=== PATIENT | male | born 1965 | race Caucasian/White ===

== ENCOUNTER 2020-02-24 15:44 | Outpatient (REF) | payer OTHER, SELFPAY ==
--- NOTE | 2020-02-24 15:52 | XR_ITS ---
EXAMINATION: XR LUMBOSACRAL SPINE CLINICAL INFORMATION: Pain COMPARISON: Previous x-ray May 2012 TECHNIQUE: Three views of the lumbosacral spine. FINDINGS: Bone alignment is normal. No fracture or dislocation is seen. There is degenerative disc disease at L3-L4. There is multilevel degenerative spondylosis. There is lower lumbar spine facet arthritis. XR/XR lumbar spine 2-3V IMPRESSION: Degenerative changes.
== END 2020-02-24 15:45 | disposition home or self-care (01) ==
LOC: HO.XRAY 15:44
PROVIDERS: PCP Internal Medicine; Visit Provider Internal Medicine
DX: M54.9 Dorsalgia, unspecified (principal)
CPT/HCPCS: 72100

== ENCOUNTER 2020-03-16 10:37 | Outpatient (REF) | payer OTHER, SELFPAY ==
[2020-03-16 11:40] LABS: Basophils Percent Auto 0.3 % (0-2); Eosinophils Absolute Auto 0.1 X10*3/uL (0.0-0.4); Eosinophils Percent Auto 1.7 % (0-4); Hematocrit 46.7 % (42-52); Hemoglobin 15.9 g/dl (14.0-18.0); Imm Gran Abs Auto 0.05 X10*3/uL (0.00-0.03); Imm Gran Pct Auto 0.7 % (0.0-0.4); Lymphocytes Absolute Auto 2.9 X10*3/uL (1.2-4.9); MANUAL DIFF FLAG NO; Mean Corpuscular Hemoglobin 29.3 pg (27.0-33.0); Mean Corpuscular Volume 86.2 fL (80-98); Monocytes Absolute Auto 0.5 X10*3/uL (0.1-1.2); Monocytes Percent Auto 6.8 % (2-11); Neutrophils Absolute Auto 3.3 X10*3/uL (2.0-8.3); Neutrophils Percent Auto 48.5 % (45-73); Platelet Count 208 X10*3/uL (160-400); Red Blood Count 5.42 X10*6/uL (4.60-5.80); Red Cell Distribution Width 13.1 % (11.0-16.0); White Blood Count 6.9 X10*3/uL (4.8-10.8)
[2020-03-16 12:03] LABS: Alanine Aminotransferase 46 U/L (0-40); Albumin Level 4.5 g/dL (3.5-5.0); Alkaline Phosphatase 57 U/L (39-117); Anion Gap 13 (12-20); Aspartate Amino Transferase 29 U/L (5-37); Bilirubin Total 0.5 mg/dL (0.0-1.0); Blood Urea Nitrogen 19 mg/dL (9-16); Calcium 9.4 mg/dL (8.4-10.2); Carbon Dioxide 28 mmol/L (22-29); Chloride 100 mmol/L (96-108); Cholesterol 198 mg/dL; Estimated Glomerular Filt Rate > 60; Glucose Fasting 113 mg/dL (60-99); HDL Cholesterol 33 mg/dL; LDL Cholesterol Calculated 115 mg/dl; Potassium 4.5 mmol/l (3.3-5.1); Sodium 136 mmol/L (135-145); Total Protein 7.2 g/dL (6.5-8.0); Triglycerides 251 mg/dL
[2020-03-16 12:26] LABS: TSH reflex Free T4 0.49 mIU/mL (0.32-4.0)
== END 2020-03-16 10:38 | disposition home or self-care (01) ==
LOC: HO.LAB 10:37
PROVIDERS: Absent Provider Internal Medicine Endocrinology, Diabetes & Metabolism; PCP Internal Medicine; Visit Provider Internal Medicine
DX: E03.9 Hypothyroidism, unspecified (principal); M51.36 Other intervertebral disc degeneration, lumbar region; I10 Essential (primary) hypertension; Z86.718 Personal history of other venous thrombosis and embolism
CPT/HCPCS: 36415; 80053; 80061; 84443; 85025

== ENCOUNTER → 2020-03-25 10:08 | Outpatient (BNVA) | payer OTHER, SELFPAY | PROVIDERS: PCP Internal Medicine; Visit Provider Dietitian, Registered | DX: Z76.89 Persons encountering health services in other specified circumstances (principal) ==

== ENCOUNTER → 2020-04-06 13:49 | Outpatient (BNV) | payer OTHER, SELFPAY | PROVIDERS: PCP Internal Medicine; Visit Provider Internal Medicine | DX: I82.402 Acute embolism and thrombosis of unspecified deep veins of left lower extremity (principal) | CPT/HCPCS: 99212; 99213; 99214; G2211 ==

== ENCOUNTER 2020-05-28 12:15 | Outpatient (REF) | payer OTHER, SELFPAY ==
--- NOTE | ~2020-05-28 | XR_ITS ---
EXAMINATION: XR FOOT, RIGHT CLINICAL INFORMATION: Pain right foot COMPARISON: None TECHNIQUE: AP, lateral, and oblique views of the right foot. FINDINGS: There is no visible acute fracture, dislocation or subluxation. The ankle mortise and subtalar joints are normal. There is a small calcaneal heel and retrocalcaneal enthesophyte. The soft tissues are normal. XR/XR foot RT min 3V IMPRESSION: No acute fracture, dislocation or subluxation. Small calcaneal heel and retrocalcaneal enthesophyte.
== END 2020-05-28 12:16 | disposition home or self-care (01) ==
LOC: HO.HMGCX 12:15
PROVIDERS: PCP Internal Medicine; Visit Provider Hospitalist
DX: M79.671 Pain in right foot (principal)
CPT/HCPCS: 73630

== ENCOUNTER → 2020-06-11 09:43 | Outpatient (BNVA) | payer OTHER, SELFPAY | PROVIDERS: PCP Internal Medicine; Visit Provider Internal Medicine Endocrinology, Diabetes & Metabolism | DX: E03.8 Other specified hypothyroidism (principal); E06.3 Autoimmune thyroiditis; Z87.891 Personal history of nicotine dependence | CPT/HCPCS: 99212 ==

== ENCOUNTER 2020-08-12 07:46 | Outpatient (REF) | payer OTHER, SELFPAY ==
[2020-08-12 09:13] LABS: Alanine Aminotransferase 48 U/L (0-40); Albumin Level 4.5 g/dL (3.5-5.0); Alkaline Phosphatase 64 U/L (39-117); Anion Gap 17 (12-20); Aspartate Amino Transferase 20 U/L (5-37); Bilirubin Total 0.5 mg/dL (0.0-1.0); Blood Urea Nitrogen 28 mg/dL (9-16); Calcium 9.5 mg/dL (8.4-10.2); Carbon Dioxide 24 mmol/L (22-29); Chloride 98 mmol/L (96-108); Cholesterol 246 mg/dL; Estimated Glomerular Filt Rate > 60; Glucose Fasting 333 mg/dL (60-99); HDL Cholesterol 31 mg/dL; Potassium 4.2 mmol/L (3.3-5.1); Sodium 135 mmol/L (135-145); Total Protein 7.3 g/dL (6.5-8.0); Triglycerides 997 mg/dL
[2020-08-12 09:21] LABS: Thyroid Stimulating Hormone 0.23 uIU/mL (0.32-4.0)
[2020-08-12 09:31] LABS: Free T4 (Free Thyroxine) 0.99 ng/dL (0.71-1.85)
== END 2020-08-12 07:47 | disposition home or self-care (01) ==
LOC: HO.LAB 07:46
PROVIDERS: Absent Provider Internal Medicine Endocrinology, Diabetes & Metabolism; PCP Internal Medicine; Visit Provider Internal Medicine
DX: I10 Essential (primary) hypertension (principal); E03.8 Other specified hypothyroidism; E06.3 Autoimmune thyroiditis; E78.5 Hyperlipidemia, unspecified
CPT/HCPCS: 36415; 80053; 80061; 84439; 84443

== ENCOUNTER 2020-10-24 13:18 | Emergency (ER) | payer OTHER, SELFPAY ==
[2020-10-24 13:22] VITALS: BP 133/94; PULSE 83; RESP 18; TEMP 36.8; O2SAT 98; BMI 36.3
--- NOTE | 2020-10-24 14:11 | ED_ITS ---
HPI - Back Pain/Injury General Chief Complaint: Back Pain/Injury Stated Complaint: General Medical Time Seen by Provider: 10/24/20 14:08 History of Present Illness HPI Narrative: Patient complains of right-sided back pain radiating to the right foot which is a chronic problem for him which periodically hurts more than normal, he has had a recent MRI which did show spinal stenosis and was told by his neurosurgeon that surgery is not recommended now but they are going to try an injection later this summer He has no new numbness or weakness, no changes to bowel or bladder no incontinence no dysuria no fever no new injury Related Data Home Medications Medication Instructions Recorded Confirmed omeprazole 20 mg capsule,delayed 20 mg PO DAILY 02/24/20 09/03/20 release venlafaxine 75 mg capsule,extended 75 mg PO DAILY 06/11/20 09/03/20 release 24 hr Previous Rx's Medication Instructions Recorded walker #1 ea 02/27/20 levothyroxine 150 mcg tablet 150 mcg PO DAILY 90 Days #90 tab 06/11/20 loratadine 10 mg capsule 10 mg PO DAILY PRN 90 Days #90 cap 06/16/20 zolpidem 5 mg tablet 5 mg PO BEDTIME PRN 30 Days #30 tab 06/16/20 lisinopril 10 mg tablet 10 mg PO DAILY 90 Days #90 tab 06/23/20 cyclobenzaprine 5 mg tablet 5 mg PO TID PRN #10 tab 08/11/20 lactulose 10 gram/15 mL (15 mL) 10 g PO BEDTIME PRN 30 Days #600 ml 08/11/20 oral solution prednisone 20 mg tablet 20 mg PO .COMPLEX #18 tab 08/11/20 tramadol 50 mg tablet 50 mg PO Q8H PRN 30 Days #90 tab 08/11/20 dexamethasone 4 mg tablet 4 mg PO .COMPLEX #18 tab 08/26/20 diclofenac sodium 75 mg 75 mg PO BID PRN #60 tab 09/03/20 tablet,delayed release oxycodone-acetaminophen 10 mg-325 1 tab PO Q6H PRN #14 tab 09/03/20 mg tablet (Percocet) hydrochlorothiazide 25 mg tablet 25 mg PO DAILY 90 Days #90 tab 09/11/20 oxycodone 5 mg tablet 5 mg PO Q6H PRN #14 tab 10/24/20 prednisone 20 mg tablet 60 mg PO DAILY 3 Days #9 tab 10/24/20 Allergies Allergy/AdvReac Type Severity Reaction Status Date / Time mint [MINT] Allergy Intermediate BRUISING Verified 10/24/20 13:22 OF FEET Review of Systems Review of Systems: Positive for right-sided back pain radiating to the foot negatives are no fever no chills no dizziness no weakness no fainting no falling no headache no neck pain no chest pain no shortness of breath no abdominal pain no dysuria no incontinence no frequency no changes to bowel or bladder no motor weakness, no loss of sensation Yes all other systems are reviewed and are negative [facility] Past Medical History Source: nursing notes reviewed Medical History (Updated 10/24/20 @ 14:18 by [facility]) Essential hypertension GERD (gastroesophageal reflux disease) History of DVT (deep vein thrombosis) Hypothyroidism Lumbar degenerative disc disease Lumbar stenosis Sciatica Surgical History History of adenoidectomy History of breast biopsy History of lithotripsy Family History Family History Mother Hypertension Father Diabetes Hypertension Stroke Brother No problems noted. Brother No problems noted. Sister No problems noted. Son In good health Son In good health Son In good health Son In good health Social History Social History Alcohol intake: never Advance Directives: No Advance Directives Information Provided: No Physical Exam Vital Signs: Vital Signs: Last Vital Signs Temp 98.2 F 10/24/20 13:22 Pulse 83 10/24/20 13:22 Resp 18 10/24/20 13:22 BP 133/94 H 10/24/20 13:22 Pulse Ox 98 10/24/20 13:22 Body Mass Index 36.3 General appearance no acute distress Head is normocephalic atraumatic Neck is supple nontender Chest clear to auscultation bilateral Abdomen soft nontender The back had right lower lumbar and right upper gluteal tenderness, no redness no warmth to the skin no wounds no rash, no midline tenderness no CVA tenderness, pain is reproduced with movement Extremities full range of motion x4 Neuro no gross motor or sensory deficits Course Course Course Narrative: Patient with long history of sciatica having a flare-up of pain with no neurologic deficit or changes to bowel or bladder a fever is treated with analgesics and a course of prednisone and discharged Discharge Plan Discharge Clinical Impression: Lumbar radiculopathy Patient Disposition: Home, Self-Care Additional Instructions: We started the medication prednisone to reduce inflammation around the nerve We did a short course of oxycodone for your back pain flare up Follow with primary doctor and your back surgeon for further evaluation and possible injection Return any concerns Prescriptions: New prednisone 20 mg tablet 60 mg PO DAILY 3 Days Qty: 9 RF: 0 oxycodone 5 mg tablet 5 mg PO Q6H PRN (Reason: pain) Qty: 14 RF: 0 No Action (DME) walker Misc See Rx Instructions .ROUTE .MEDSUPPLY Qty: 1 RF: 0 lisinopril 10 mg tablet 10 mg PO DAILY 90 Days Qty: 90 RF: 3 hydrochlorothiazide 25 mg tablet 25 mg PO DAILY 90 Days Qty: 90 RF: 1 omeprazole 20 mg capsule,delayed release(DR/EC) 20 mg PO DAILY RF: 0 cyclobenzaprine 5 mg tablet 5 mg PO TID PRN (Reason: muscle spasm) Qty: 10 RF: 0 prednisone 20 mg tablet 20 mg PO .COMPLEX Qty: 18 RF: 0 tramadol 50 mg tablet 50 mg PO Q8H PRN (Reason: pain) 30 Days Qty: 90 RF: 0 lactulose 10 gram/15 mL (15 mL) solution 10 g PO BEDTIME PRN (Reason: constipation) 30 Days Qty: 600 RF: 6 dexamethasone 4 mg tablet 4 mg PO .COMPLEX Qty: 18 RF: 0 oxycodone-acetaminophen [Percocet] 10-325 mg tablet 1 tab PO Q6H PRN (Reason: pain) Qty: 14 RF: 0 diclofenac sodium 75 mg tablet,delayed release (DR/EC) 75 mg PO BID PRN (Reason: pain) Qty: 60 RF: 0 loratadine 10 mg capsule 10 mg PO DAILY PRN (Reason: allergy symptoms) 90 Days Qty: 90 RF: 3 zolpidem 5 mg tablet 5 mg PO BEDTIME PRN (Reason: Insomnia) 30 Days Qty: 30 RF: 0 venlafaxine 75 mg capsule,extended release 24hr 75 mg PO DAILY RF: 0 levothyroxine 150 mcg tablet 150 mcg PO DAILY 90 Days Qty: 90 RF: 2 Interventions: ED Discharge Assessment Last Done: 10/24/20 14:26 Discharge Date/Time: 10/24/20 14:27
[2020-10-24] MEDS: predniSONE 20 MG TABLET 60 MG PO (14:20)
== END 2020-10-24 14:27 | disposition home or self-care (01) ==
PROVIDERS: Emergency Provider Emergency Medicine; PCP Internal Medicine
DX: M54.16 Radiculopathy, lumbar region (principal); M54.41 Lumbago with sciatica, right side; I10 Essential (primary) hypertension; Z86.718 Personal history of other venous thrombosis and embolism; E66.9 Obesity, unspecified; Z68.30 Body mass index [BMI] 30.0-30.9, adult
CPT/HCPCS: 99283

== ENCOUNTER 2020-12-23 08:20 | Outpatient (REF) | payer OTHER, SELFPAY ==
[2020-12-23 09:12] LABS: Alanine Aminotransferase 56 U/L (0-40); Albumin Level 4.7 g/dL (3.5-5.0); Alkaline Phosphatase 47 U/L (39-117); Anion Gap 11 (12-20); Aspartate Amino Transferase 27 U/L (5-37); Bilirubin Total 0.2 mg/dL (0.0-1.0); Blood Urea Nitrogen 16 mg/dL (9-16); Calcium 9.6 mg/dL (8.4-10.2); Carbon Dioxide 28 mmol/L (22-29); Chloride 102 mmol/L (96-108); Cholesterol 235 mg/dL; Estimated Glomerular Filt Rate > 60; Glucose Fasting 183 mg/dL (60-99); HDL Cholesterol 38 mg/dL; Potassium 4.2 mmol/L (3.3-5.1); Sodium 137 mmol/L (135-145); Total Protein 7.2 g/dL (6.5-8.0); Triglycerides 493 mg/dL
[2020-12-23 09:36] LABS: Thyroid Stimulating Hormone 1.37 uIU/mL (0.32-4.0)
[2020-12-23 10:19] LABS: Creatinine Urine 216.74 mg/dL; Microalbum/Creatinine Ratio Ur 13.3 ug/mg cr
== END 2020-12-23 08:21 | disposition home or self-care (01) ==
LOC: HO.LAB 08:20
PROVIDERS: PCP Internal Medicine; Visit Provider Internal Medicine
DX: E11.9 Type 2 diabetes mellitus without complications (principal); E03.8 Other specified hypothyroidism; E06.3 Autoimmune thyroiditis; E78.5 Hyperlipidemia, unspecified
CPT/HCPCS: 36415; 80053; 80061; 82043; 84439; 84443

== ENCOUNTER → 2021-01-11 14:17 | Outpatient (BNVA) | payer OTHER, SELFPAY | PROVIDERS: PCP Internal Medicine; Visit Provider Nurse Practitioner Gerontology | DX: E03.8 Other specified hypothyroidism (principal); E06.3 Autoimmune thyroiditis; E66.09 Other obesity due to excess calories; Z68.33 Body mass index [BMI] 33.0-33.9, adult | CPT/HCPCS: 82947; 99212 ==

== ENCOUNTER 2021-02-01 11:50 | Outpatient (REF) | payer OTHER, SELFPAY ==
--- NOTE | ~2021-02-01 | US_ITS ---
EXAMINATION: LEFT LOWER EXTREMITY DEEP VENOUS ULTRASOUND CLINICAL INFORMATION: Left lower extremity pain and swelling. History of prior DVT. COMPARISON: Left lower extremity DVT study 02/07/2019 TECHNIQUE: Duplex Doppler imaging with compression maneuvers were performed of the left lower extremity deep venous system. FINDINGS: The visualized common femoral vein, superficial femoral vein and proximal portion of the popliteal vein demonstrate normal compressibility and color flow without evidence of venous thrombosis. Within the distal aspect of the popliteal vein there is an echogenic focus most suggestive of old thrombus. Color Doppler flow is identified in this region. Visualized calf veins demonstrate normal color flow consistent with patency. There is no evidence of a Raphael's cyst. US/US venous duplex LE LT IMPRESSION: Suspected chronic appearing nonocclusive DVT within the distal portion of the left popliteal vein. An element of subtle superimposed nonocclusive acute thrombus not excluded. Preliminary results discussed with Dr. Rubio by the technologist at 12:15pm.
== END 2021-02-01 11:51 | disposition home or self-care (01) ==
LOC: HO.HMGCX 11:50
PROVIDERS: PCP Internal Medicine; Visit Provider Physician Assistant Medical
DX: M79.605 Pain in left leg (principal); Z86.718 Personal history of other venous thrombosis and embolism
CPT/HCPCS: 93971

== ENCOUNTER → 2021-02-03 11:00 | Outpatient (BNVA) | payer OTHER, SELFPAY | PROVIDERS: PCP Internal Medicine; Visit Provider Registered Nurse Diabetes Educator | DX: E11.9 Type 2 diabetes mellitus without complications (principal); I10 Essential (primary) hypertension; E78.5 Hyperlipidemia, unspecified; E78.2 Mixed hyperlipidemia; E66.9 Obesity, unspecified; F14.11 Cocaine abuse, in remission; F12.21 Cannabis dependence, in remission; Z87.891 Personal history of nicotine dependence; Z91.02 Food additives allergy status | CPT/HCPCS: 99211 ==

== ENCOUNTER → 2021-05-05 13:41 | Outpatient (BNVA) | payer OTHER, SELFPAY | PROVIDERS: PCP Internal Medicine; Visit Provider Nurse Practitioner Gerontology | DX: E11.9 Type 2 diabetes mellitus without complications (principal); E03.8 Other specified hypothyroidism; E06.3 Autoimmune thyroiditis; E66.09 Other obesity due to excess calories; E78.5 Hyperlipidemia, unspecified; I10 Essential (primary) hypertension; Z68.41 Body mass index [BMI] 40.0-44.9, adult; Z79.84 Long term (current) use of oral hypoglycemic drugs | CPT/HCPCS: 82947; 99212 ==

== ENCOUNTER → 2021-05-07 10:37 | Outpatient (BNVA) | payer OTHER, SELFPAY | PROVIDERS: PCP Internal Medicine; Visit Provider Registered Nurse Diabetes Educator | DX: E11.9 Type 2 diabetes mellitus without complications (principal) | CPT/HCPCS: 99211 ==

== ENCOUNTER 2021-05-31 08:30 | Outpatient (REF) | payer OTHER, SELFPAY ==
--- NOTE | ~2021-05-31 | US_ITS ---
EXAMINATION: US ABDOMEN COMPLETE CLINICAL INFORMATION: Right upper quadrant pain. COMPARISON: CT abdomen and pelvis without contrast 11/24/2015. TECHNIQUE: Real-time imaging of the abdominal viscera. FINDINGS: PANCREAS: The head and body appear normal. The tail is obscured by bowel gas. ABDOMINAL AORTA: The proximal, mid, and distal segments are normal in caliber. INFERIOR VENA CAVA: Visualized portions are normal. LIVER: The liver is enlarged measuring 18.3 cm. The liver contour is normal. There is diffuse increased liver parenchymal echogenicity, consistent with hepatic steatosis. There is fatty sparing along the gallbladder fossa. No focal hepatic lesion. There is no intrahepatic biliary duct dilatation seen. GALLBLADDER: Normal. The gallbladder is physiologically distended without evidence of stones, sludge, polyps, wall thickening or pericholecystic fluid. COMMON BILE DUCT: Normal in caliber measuring 0.4 cm in diameter. RIGHT KIDNEY: Normal. No hydronephrosis. No renal calculi or focal parenchymal lesions. The kidney measures 12.6 cm in maximum dimension. LEFT KIDNEY: Normal. No hydronephrosis. No renal calculi or focal parenchymal lesions. The kidney measures 12.0 cm in maximum dimension. SPLEEN: Normal. The spleen measures 11.1 cm in maximum dimension. FREE FLUID: None. US/US abdomen complete IMPRESSION: Enlarged fatty liver.
== END 2021-05-31 08:31 | disposition home or self-care (01) ==
LOC: HO.US 08:30
PROVIDERS: PCP Internal Medicine; Visit Provider Internal Medicine
DX: R10.11 Right upper quadrant pain (principal)
CPT/HCPCS: 76700

== ENCOUNTER → 2021-06-18 11:01 | Outpatient (BNVA) | payer OTHER, SELFPAY | PROVIDERS: PCP Internal Medicine; Visit Provider Registered Nurse Diabetes Educator | DX: E11.9 Type 2 diabetes mellitus without complications (principal) | CPT/HCPCS: 99211 ==

== ENCOUNTER → 2021-10-22 11:12 | Outpatient (BNVA) | payer OTHER, SELFPAY | PROVIDERS: PCP Internal Medicine; Visit Provider Registered Nurse Diabetes Educator | DX: E11.9 Type 2 diabetes mellitus without complications (principal) | CPT/HCPCS: 99211 ==

== ENCOUNTER 2021-12-24 08:09 | Outpatient (REF) | payer OTHER, SELFPAY ==
[2021-12-24 09:36] LABS: Alanine Aminotransferase 47 U/L (0-40); Albumin Level 4.4 g/dL (3.5-5.0); Alkaline Phosphatase 46 U/L (39-117); Anion Gap 14 (12-20); Aspartate Amino Transferase 30 U/L (5-37); Bilirubin Total 0.2 mg/dL (0.0-1.0); Blood Urea Nitrogen 14 mg/dL (9-16); Calcium 9.5 mg/dL (8.4-10.2); Carbon Dioxide 27 mmol/L (22-29); Chloride 101 mmol/L (96-108); Cholesterol 202 mg/dL; Estimated Glomerular Filt Rate > 60; Glucose Fasting 130 mg/dL (60-99); HDL Cholesterol 34 mg/dL; LDL Cholesterol Calculated 99 mg/dl; Potassium 4.2 mmol/L (3.3-5.1); Sodium 138 mmol/L (135-145); Total Protein 6.9 g/dL (6.5-8.0); Triglycerides 346 mg/dL
[2021-12-24 09:53] LABS: Creatinine Urine 104.21 mg/dL; Microalbum/Creatinine Ratio Ur 4.7 ug/mg cr
[2021-12-24 09:56] LABS: Thyroid Stimulating Hormone 0.77 uIU/mL (0.32-4.0)
== END 2021-12-24 08:10 | disposition home or self-care (01) ==
LOC: HO.LAB 08:09
PROVIDERS: Visit Provider Internal Medicine
DX: E03.8 Other specified hypothyroidism (principal); E78.5 Hyperlipidemia, unspecified; E11.9 Type 2 diabetes mellitus without complications; E06.3 Autoimmune thyroiditis
CPT/HCPCS: 36415; 80053; 80061; 82043; 84443

== ENCOUNTER 2022-06-28 07:37 | Outpatient (REF) | payer OTHER, SELFPAY ==
[2022-06-28 09:16] LABS: Creatinine Urine 279.49 mg/dL; Microalbum/Creatinine Ratio Ur 7.5 ug/mg cr
[2022-06-28 09:26] LABS: Alanine Aminotransferase 64 U/L (0-40); Albumin Level 4.2 g/dL (3.5-5.0); Alkaline Phosphatase 56 U/L (39-117); Anion Gap 13 (12-20); Aspartate Amino Transferase 36 U/L (5-37); Bilirubin Total 0.4 mg/dL (0.0-1.0); Blood Urea Nitrogen 19 mg/dL (9-16); Calcium 9.5 mg/dL (8.4-10.2); Carbon Dioxide 28 mmol/L (22-29); Chloride 102 mmol/L (96-108); Cholesterol 194 mg/dL; Estimated Glomerular Filt Rate > 60; Glucose Fasting 180 mg/dL (60-99); HDL Cholesterol 28 mg/dL; Potassium 4.2 mmol/L (3.3-5.1); Sodium 139 mmol/L (135-145); Total Protein 6.7 g/dL (6.5-8.0); Triglycerides 610 mg/dL
[2022-06-28 09:47] LABS: Folate 10.9 ng/mL (> or = 4.0); Thyroid Stimulating Hormone 0.81 uIU/mL (0.32-4.0); Vitamin B12 485 pg/mL (200-900); Vitamin D 25-OH Total 17.6 ng/mL (>30)
== END 2022-06-28 07:38 | disposition home or self-care (01) ==
LOC: HO.LAB 07:37
PROVIDERS: PCP Internal Medicine; Visit Provider Internal Medicine
DX: E78.5 Hyperlipidemia, unspecified (principal); E55.9 Vitamin D deficiency, unspecified; E11.9 Type 2 diabetes mellitus without complications; E53.8 Deficiency of other specified B group vitamins; E03.8 Other specified hypothyroidism; E06.3 Autoimmune thyroiditis
CPT/HCPCS: 36415; 80053; 80061; 82043; 82306; 82607; 82746; 84443

== ENCOUNTER → 2022-07-22 08:57 | Outpatient (BNVA) | payer OTHER, SELFPAY | PROVIDERS: PCP Internal Medicine; Visit Provider Psychiatry & Neurology Neurology | DX: R20.0 Anesthesia of skin (principal) | CPT/HCPCS: 99202 ==

== ENCOUNTER 2022-10-12 09:42 | Outpatient (REF) | payer OTHER, SELFPAY ==
--- NOTE | 2022-10-12 09:45 | EMG_ITS ---
Please see scanned EMG / Nerve Conduction Report. MTDD
== END 2022-10-12 09:43 | disposition home or self-care (01) ==
LOC: HO.NEURO 09:42
PROVIDERS: PCP Internal Medicine; Visit Provider Psychiatry & Neurology Neurology
DX: R20.0 Anesthesia of skin (principal)
CPT/HCPCS: 95885; 95910

== ENCOUNTER 2023-01-04 14:31 | Outpatient (AMB) | payer OTHER, SELFPAY ==
--- NOTE | 2023-01-04 14:32 | MHC.PC.OV ---
Vital Signs 01/04/23 14:36 Height 5 ft 3 in Weight 214 lb BMI 37.9 BP 130/80 Blood Pressure Location Lt brachial Position Sitting Pulse 74 Pulse Source Pulse Oximeter Pulse Oximetry (%) 97 Oxygen Delivery Method Room Air Intake Visit Reasons: Annual Exam Intake Note: Patient here for a physical exam Wound Specialist Required: No Accompanied by: Self / Same As Patient Allergies mint [MINT] Allergy (Intermediate, Verified 01/04/23 15:10) BRUISING OF FEET Medication List - Last Reconciled 01/04/23 by Gem Linares MD apixaban (Eliquis) 5 mg PO BID 90 days atorvastatin 40 mg PO BEDTIME 90 days blood sugar diagnostic (FreeStyle Test strips) Use 1 test strip once a day blood-glucose meter (StyleCasterStyle [place] Lite kit) As directed cholecalciferol (vitamin D3) 50 mcg PO DAILY 90 days diclofenac sodium 1% (Arthritis Pain (diclofenac)) 2 grams topical QID 30 days fenofibrate 54 mg PO DAILY 90 days hydrochlorothiazide 25 mg PO DAILY 90 days lancets (FreeStyle Lancets) Use 1 lancet daily to test blood glucose. levothyroxine 150 mcg PO DAILY 90 days lisinopril 10 mg PO DAILY 90 days loratadine 10 mg PO DAILY PRN 90 days meloxicam 15 mg PO DAILY 90 days metformin 1,000 mg (2 x 500 mg) PO BID 90 days omeprazole 20 mg PO DAILY 90 days semaglutide (Ozempic) 0.25 mg (0.368 mL) subcut QWEEK 90 days venlafaxine ER 37.5 mg PO DAILY 90 days walker As directed zolpidem 5 mg PO BEDTIME PRN 30 days Tobacco use date assessed: 06/22/22 Dental Screening Dental Screen Date: 01/04/23 Did you have a dental visit in the last 12 months?: Yes Did you have a dental problem in the last 6 months where you did not have access to dental care?: No Was dental information given to patient?: Patient has dentist HPI HPI Comments History of Present Illness Details This is a 57-year-old male with diabetes mellitus type 2 that comes for his physical exam. A1c elevated and I will increase also Ozempic. Last diabetic eye exam was 2 years ago and will be referred. Last colonoscopy was 2015 showing hyperplastic polyp next colonoscopy should be 2025. Complains of numbness and burning like pain in lower limbs and had nerve conduction study showing neuropathy and I will refer him to Neurology. No chest pain or shortness of breath. [facility] Medical History (Updated 01/04/23 @ 15:28 by Gem Linares MD) Numbness of right foot Right upper quadrant abdominal pain Dyslipidemia DM2 (diabetes mellitus, type 2) Obesity due to excess calories Mixed hyperlipidemia Diabetes mellitus Sciatica Lumbar stenosis Essential hypertension Hypothyroidism History of DVT (deep vein thrombosis) Lumbar degenerative disc disease GERD (gastroesophageal reflux disease) Surgical History Status post cervical spinal fusion History of lithotripsy History of adenoidectomy History of breast biopsy Family History Mother Hypertension Father Diabetes Hypertension Stroke Brother No problems noted. Brother No problems noted. Sister No problems noted. Son In good health Son In good health Son In good health Son In good health Social History Household Members: Spouse Housing: Apartment Alcohol intake: former Patient Tobacco Use Status: Former Tobacco user Tobacco use type: Cigarette Years Smoked: quit 20 years ago e-Cigarette/Vaping Use: Never Used Second Hand Smoke Exposure: Yes Substance Use Type: Crack/Cocaine, Former Substance User and Marijuana service: No Current occupational status: disabled Cognitive needs: Yes Hearing needs: No Vision needs: Yes Questionnaire Thrive Questionnaire Date Thrive assessed: 06/22/22 JENARO-7 AMB Questionnaire JENARO-7 Date JNEARO - 7 assessed: 06/22/22 Source: Developed by Drs. Robby Rodriguez, Daysi Gonzalez, Chu Casper and colleagues, with an educational christian from [employer]. Review of Systems Const All systems reviewed & are unremarkable except as noted in HPI and below Eyes Reports no additional complaints, Denies change in vision and Denies other visual disturbances Card Denies chest pain at rest, Denies chest pain with activity, Denies edema, Denies irregular heart rhythm, Denies claudication, Denies dyspnea, Denies dyspnea on exertion, Denies orthopnea, Denies paroxysmal nocturnal dyspnea and Denies slow heart rate Resp Denies cough, Denies dyspnea and Denies dyspnea on exertion GI Denies abdominal pain, Denies change in bowel habits, Denies excessive flatus, Denies nausea and Denies vomiting Denies urinary hesitancy, Denies urinary incontinence and Denies urinary urgency Musc Denies abnormal gait, Denies atrophy, Denies deformity and Denies limited range of motion Skin/Breast Denies bleeding lesions, Denies changing lesions and Denies rash Neuro Denies abnormal gait and Denies lack of coordination Physical exam (Primary Care) Vital Signs: Last Vital Signs Pulse 74 01/04/23 14:36 BP 130/80 01/04/23 14:36 Pulse Ox 97 01/04/23 14:36 Oxygen Delivery Method Room Air 01/04/23 14:36 BMI result Body Mass Index 37.9 Tobacco/Smoking Status: Tobacco use Status Tobacco use date assessed 06/22/22 01/04/23 14:34 Patient Tobacco Use Status Former Tobacco user 01/04/23 14:34 Tobacco use type Cigarette 01/04/23 14:34 e-Cigarette/Vaping Use Never Used 01/04/23 14:34 Thrive Assessment: Date of Thrive Assessment Date Thrive assessed 06/22/22 01/04/23 14:34 Const Orientation/consciousness: patient oriented x3 HENMT Head: Yes normal to inspection, Yes normocephalic and Yes atraumatic Ears: external ears normal Eyes General: appearance normal, both eyes and all related structures Eyelids: Yes eyelids normal Conjunctivae: conjunctivae normal Neck Neck: Yes normal visual inspection and Yes supple Resp Effort & Inspection: normal respiratory effort Auscultation: clear to auscultation bilaterally Cardio Jugular venous distension: no JVD Rate: regular rate Rhythm: regular rhythm Heart sounds: S1 normal heart sound present and S2 normal heart sound present GI Inspection: Yes normal to inspection Palpation (GI): Soft to palpation and nontender Auscultation: normal bowel sounds Skin General skin exam: no rashes or lesions noted Neuro General: patient oriented x3 and no focal motor deficits Extrem General: Yes full ROM Psych Appearance: grossly normal Office Procedures Flu Questionnaire Does the patient have a severe egg allergy?: No Results AMB Hemoglobin A1c AMB Hemoglobin A1c 9.0 % Last Edit by HARRY Munoz on 01/04/23 14:43 Immunizations flu vacc [id number] 6mos up(PF) 60 mcg(15 mcgx4)/0.5 mL IM syringe Performing Provider: Gem Linares MD [facility] Documented (not given) by: HARRY Munoz on 01/04/23 14:40 Reason Not Given: Patient Refused Results Reviewed Results Reviewed: Laboratory Last Values Hgb A1c (Clinic) 9.0 % (4.0-6.0) H 01/04/23 14:32 Assessment and Plan Assessment & Plan (1) Physical exam: Code(s): Z00.00 - Encounter for general adult medical examination without abnormal findings Plan: Repeat in a year. (2) DM2 (diabetes mellitus, type 2): Code(s): E11.9 - Type 2 diabetes mellitus without complications Qualifiers: Diabetes mellitus buttermaker continuous churn insulin use: without buttermaker continuous churn use Diabetes mellitus complication status: without complication Qualified Code(s): E11.9 - Type 2 diabetes mellitus without complications Plan: Continue metformin. Increase Ozempic. A1c goal is equal or less than 7 %. Orders: Orders AMB Hemoglobin A1c Today E11.9 - Type 2 diabetes mellitus without complications Influenza [id number] Immunization Today Z23 - Encounter for immunization Referrals Ophthalmology Referral E11.9 - Type 2 diabetes mellitus without complications Neurology Referral G62.9 - Polyneuropathy, unspecified Medications: New fenofibrate 160 mg PO DAILY 90 tabs 1RF 90 days semaglutide 1 mg (0.75 mL) subcut QWEEK 3.75 mL 6RF 30 days E11.9 - Type 2 diabetes mellitus without complications Changed From metformin 1,000 mg (2 x 500 mg) PO BID 90 days 360 tabs 0RF E11.9 - Type 2 diabetes mellitus without complications To metformin 500 mg PO BID 180 tabs 3RF 90 days E11.9 - Type 2 diabetes mellitus without complications Discontinued fenofibrate Discontinued Reason: Patient Completed Course 54 mg PO DAILY 90 days 90 tabs 1RF semaglutide (Ozempic) for 4 weeks Discontinued Reason: Patient Completed Course 0.25 mg (0.368 mL) subcut QWEEK 90 days 5.2 mL 1RF E11.9 - Type 2 diabetes mellitus without complications Coding Level of Care Code Est Pt Prev Care 40-64y(55914) Diagnoses Physical exam Z00.00 Type 2 diabetes mellitus without complication, without long-term current use of insulin E11.9 Diabetes mellitus buttermaker continuous churn insulin use: without buttermaker continuous churn use Diabetes mellitus complication status: without complication Time Spent (min) 33
[2023-01-04 14:36] VITALS: BP 130/80; PULSE 74; O2SAT 97; BMI 37.9
== END 2023-01-04 15:25 | disposition home or self-care (01) ==
PROVIDERS: Visit Provider Internal Medicine
DX: Z00.00 Encounter for general adult medical examination without abnormal findings (principal); E11.9 Type 2 diabetes mellitus without complications; I10 Essential (primary) hypertension; K21.9 Gastro-esophageal reflux disease without esophagitis
CPT/HCPCS: 83036; 99396

== ENCOUNTER 2023-02-21 10:14 | Outpatient (AMB) | payer OTHER, SELFPAY ==
[2023-02-21 10:23] VITALS: BP 140/78; PULSE 81; O2SAT 96; BMI 37.8
--- NOTE | 2023-02-21 10:23 | A.OFFVIS_ITS ---
Intake Vital Signs 02/21/23 10:23 Height 5 ft 3 in Weight 213 lb 8 oz BMI 37.8 BP 140/78 H Blood Pressure Location Rt brachial Position Sitting Pulse 81 Pulse Source Pulse Oximeter Pulse Oximetry (%) 96 Oxygen Delivery Method Room Air Intake Visit Reasons: f/u appt for Polyneuropath/Confirmed Intake Note: Pt presents to the office today for a follow up appointment for polyneuropathy. Allergies mint [MINT] Allergy (Intermediate, Verified 02/21/23 10:24) BRUISING OF FEET HPI HPI Comments History of Present Illness Details 57 y/o male patient comes for follow up of numbness in his right foot and EMG report. 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 EMG of right L4-S1 innervated muscles consistent with mild distal chronic neuropathic changes of neuropathy. He says the numbness of right distal toes started about 2 years ago. The numbness is in his 4th, 5th toe on his right. He has chronic back pain and sciatica and intermittently he has shooting pain and numbness in his whole right lower extremity. He was getting injections for his back pain. Pt is seeing [facility] for treatment of his back, was seen by neurosurgery. Pt also muscle cramps in his right leg in sleep, muscle jerks at night that wakes him up. He has RYDER and is on CPAP. His last A1C was 9 in Dec, 2022. [facility] Medical History Numbness of right foot Right upper quadrant abdominal pain Dyslipidemia DM2 (diabetes mellitus, type 2) Obesity due to excess calories Mixed hyperlipidemia Diabetes mellitus Sciatica Lumbar stenosis Essential hypertension Hypothyroidism History of DVT (deep vein thrombosis) Lumbar degenerative disc disease GERD (gastroesophageal reflux disease) Surgical History Status post cervical spinal fusion History of lithotripsy History of adenoidectomy History of breast biopsy Family History Mother Hypertension Father Diabetes Hypertension Stroke Brother No problems noted. Brother No problems noted. Sister No problems noted. Son In good health Son In good health Son In good health Son In good health Social History Household Members: Spouse Housing: Apartment Alcohol intake: former Patient Tobacco Use Status: Former Tobacco user Tobacco use type: Cigarette Years Smoked: quit 20 years ago e-Cigarette/Vaping Use: Never Used Second Hand Smoke Exposure: Yes Substance Use Type: Crack/Cocaine, Former Substance User and Marijuana service: No Current occupational status: disabled Cognitive needs: Yes Hearing needs: No Vision needs: Yes Review of Systems Const All systems reviewed & are unremarkable except as noted in HPI and below Physical Exam Vital Signs: Last Vital Signs Pulse 81 02/21/23 10:23 BP 140/78 H 02/21/23 10:23 Pulse Ox 96 02/21/23 10:23 Oxygen Delivery Method Room Air 02/21/23 10:23 BMI result Body Mass Index 37.8 Const Orientation/consciousness: patient oriented x3 Eyes Pupils: Equal, round and reactive pupils present Neuro Other: Decreased PP light touch in right 4th and 5th toe dorsal and plantar surfaces Mild weakness of left thigh General: patient oriented x3, tone normal and moves all extremities Cranial nerves: Yes Facial sensation intact/muscles of mastication intact, Yes Equal, round and reactive pupils present, Yes Bilaterally intact EOM present, Yes Nystagmus not present, Yes Normal facial strength present, Yes Midline tongue present and Yes Symmetric palate elevation present Cognition (Neuro): normal cognition Gait exam (Neuro): Antalgic gait present Motor exam (neuro): 5/5 motor strength present throughout and Normal motor muscle tone present throughout Deep tendon reflexes (DTR's): Right triceps reflex intensity grade: 2+, Left triceps reflex intensity grade: 2+, Rt Biceps (C5, C6): 2+, Left biceps reflex intensity grade: 2+, Right brachioradialis reflex intensity grade: 2+, Left brachioradialis reflex intensity grade: 2+, Right patellar reflex intensity grade: 2+, Left patellar reflex intensity grade: 2+, Right ankle reflex intensity grade: 0 and Left ankle reflex intensity grade: 0 Coordination: [id number] test normal Assessment & Plan Assessment & Plan (1) Numbness of right foot: Comment: likely related to S1 radiculopathy Code(s): R20.0 - Anesthesia of skin (2) Neuropathy: Code(s): G62.9 - Polyneuropathy, unspecified Plan He declines gabapentin. Advised patient to try magnesium 400 mg qHS for muscle cramping. Advised patient to try Nirvive for toe numbness and will follow up as needed. Advised patient to manage his diabetes, losing wt. Stressed CPAP compliance, use CPAP nightly and more than 4 hrs. Medications: New magnesium oxide 400 mg PO DAILY 30 tabs 6RF 30 days Coding Level of Care Code Est Pt Level 4 (59914) Diagnoses Numbness of right foot R20.0 Neuropathy G62.9
== END 2023-02-21 11:04 | disposition home or self-care (01) ==
PROVIDERS: PCP Internal Medicine; Visit Provider Nurse Practitioner Family
DX: R20.0 Anesthesia of skin (principal); G62.9 Polyneuropathy, unspecified
CPT/HCPCS: 99214

== ENCOUNTER → 2023-02-21 10:14 | Outpatient (BNVA) | payer OTHER, SELFPAY | PROVIDERS: PCP Internal Medicine; Visit Provider Nurse Practitioner Family | DX: R20.0 Anesthesia of skin (principal); G62.9 Polyneuropathy, unspecified | CPT/HCPCS: 99212 ==

== ENCOUNTER → 2023-04-06 12:02 | Outpatient (REF) | payer OTHER, SELFPAY | LOC: HO.SL 12:02 | PROVIDERS: PCP Internal Medicine; Visit Provider Internal Medicine | DX: G47.33 Obstructive sleep apnea (adult) (pediatric) (principal) | CPT/HCPCS: 95806 ==

== ENCOUNTER → 2023-04-06 14:07 | Outpatient (BNV) | payer OTHER, SELFPAY | PROVIDERS: PCP Internal Medicine; Visit Provider Internal Medicine | DX: G47.33 Obstructive sleep apnea (adult) (pediatric) (principal) | CPT/HCPCS: 95806 ==

== ENCOUNTER 2023-10-11 15:16 | Outpatient (AMB) | payer OTHER, SELFPAY ==
--- NOTE | 2023-10-11 15:19 | MHC.PC.OV ---
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 Required: No Accompanied by: Self / Same As Patient Allergies mint [MINT] Allergy (Intermediate, Verified 10/11/23 15:45) BRUISING OF FEET Medication List - Last Reconciled 10/11/23 by Gem Linares MD apixaban (Eliquis) 5 mg PO BID 90 days atorvastatin 40 mg PO BEDTIME 90 days blood sugar diagnostic (FreeStyle Test strips) Use 1 test strip once a day blood-glucose meter (FreeStyle [place] Lite kit) As directed cholecalciferol (vitamin D3) 50 mcg PO DAILY 90 days diclofenac sodium 1% (Arthritis Pain (diclofenac)) 2 grams topical QID 30 days fenofibrate 160 mg PO DAILY 90 days hydrochlorothiazide 25 mg PO DAILY 90 days lancets (FreeStyle Lancets) Use 1 lancet daily to test blood glucose. levothyroxine 150 mcg PO DAILY 90 days lisinopril 10 mg PO DAILY 90 days loratadine 10 mg PO DAILY PRN 90 days magnesium oxide 400 mg PO DAILY 30 days meloxicam 15 mg PO DAILY 90 days metformin 500 mg PO BID 90 days omeprazole 20 mg PO DAILY 90 days semaglutide (Ozempic) mg subcut venlafaxine ER 37.5 mg PO DAILY 90 days walker As directed zolpidem 5 mg PO BEDTIME PRN 30 days Tobacco use date assessed: 10/11/23 Dental Screening Dental Screen Date: 10/11/23 Did you have a dental visit in the last 12 months?: No Did you have a dental problem in the last 6 months where you did not have access to dental care?: No Was dental information given to patient?: Patient has dentist HPI HPI Comments History of Present Illness Details This is a 58-year-old male with diabetes mellitus type 2, hypertension, mixed hyperlipidemia, hypothyroidism and mild recurrent major depression that comes today for follow-up on his conditions. A1c within goal. Blood pressure stable. Last LDL was not on goal and lipid panel will be repeated. LDL goal should be less than 70. TSH will be repeated for his hypothyroidism. Depression has been stable with venlafaxine. Denies any chest pain or shortness on breath. [facility] Medical History (Updated 10/11/23 @ 15:52 by Gem Linares MD) Numbness of right foot Right upper quadrant abdominal pain Dyslipidemia DM2 (diabetes mellitus, type 2) Obesity due to excess calories Mixed hyperlipidemia Diabetes mellitus Sciatica Lumbar stenosis Essential hypertension Hypothyroidism History of DVT (deep vein thrombosis) Lumbar degenerative disc disease GERD (gastroesophageal reflux disease) Surgical History Status post cervical spinal fusion History of lithotripsy History of adenoidectomy History of breast biopsy Family History Mother Hypertension Father Diabetes Hypertension Stroke Brother No problems noted. Brother No problems noted. Sister No problems noted. Son In good health Son In good health Son In good health Son In good health Social History Household Members: Spouse Housing: Apartment Alcohol intake: former Patient Tobacco Use Status: Former Tobacco user Tobacco use type: Cigarette Years Smoked: quit 20 years ago e-Cigarette/Vaping Use: Never Used Second Hand Smoke Exposure: Yes Substance Use Type: Crack/Cocaine, Former Substance User and Marijuana service: No Current occupational status: disabled Cognitive needs: Yes Hearing needs: No Vision needs: Yes Questionnaire PHQ-9 Over the last 2 weeks, how often have you been bothered by any of the following problems? 1. Little interest or pleasure in doing things: not at all 2. Feeling down, depressed, or hopeless: not at all 3. Trouble falling or staying asleep, or sleeping too much: not at all 4. Feeling tired or having little energy: not at all 5. Poor appetite or overeating: not at all 6. Feeling bad about yourself - or that you are a failure or have let yourself or your family down: not at all 7. Trouble concentrating on things, such as reading the newspaper or watching television: not at all 8. Moving or speaking so slowly that other people could have noticed. Or the opposite - being so fidgety or restless that you have been moving around a lot more than usual: not at all 9. Thoughts that you would be better off or of hurting yourself in some way: not at all Total score: 0 Depression Screening Interpretation: Negative Depression Screening Done: Yes 42141 - PHQ-9 Billing: Yes Source: Developed by Drs. Robby Rodriguez, Daysi Gonzalez, Chu Casper and colleagues, with an educational christian from [employer]. Thrive Questionnaire Date Thrive assessed: 10/11/23 I am a: Patient What is your living situation today?: I have a steady place to live Within the past 12 months, did the food you bought not last and you didn't have the money to get more?: Never true Within the past 12 months, did you worry whether your food would run out before you got money to buy more?: Never true Do you have trouble paying for medicines?: No Do you have trouble getting transportation to medical appointments?: No Do you have trouble paying your heating and electricity bill?: No Do you have trouble taking care of your child, family member or friend?: No Do you have trouble with day-to-day activities such as bathing, preparing meals, shopping, managing finances, etc.?: No Are you currently unemployed and looking for a job?: No Are you interested in more education?: No Please select the resources that you would like help with: None Currently or been in a relationship where the following occur: No concerns reported THRIVE Score: 0 AUDIT C Alcohol Use Questionnaire (AUDIT-C) 1. How often do you have a drink containing alcohol?: Never Total Score: 0 JENARO-7 AMB Questionnaire JENARO-7 Date JENARO - 7 assessed: 10/11/23 Feeling nervous, anxious, or on edge: 0 = Not at all Not being able to stop or control worryin = Not at all Worrying too much about different things: 0 = Not at all Trouble relaxin = Not at all Being so restless that it is hard to sit still: 0 = Not at all Becoming easily annoyed or irritable: 0 = Not at all Feeling afraid as if something awful might happen: 0 = Not at all Total JENARO-7 score (0-4 normal; 5-9 mild; 10-14 moderate; 15-21 severe): 0 Source: Developed by Daysi Gaitan Kurt Kroenke and colleagues, with an educational christian from [employer]. JENARO-7 Assessment Billing JENARO-7 Assessment Tool: JENARO-7 Assessment 72033 Review of Systems Const All systems reviewed & are unremarkable except as noted in HPI and below Card Denies chest pain at rest, Denies chest pain with activity, Denies edema, Denies irregular heart rhythm, Denies claudication, Denies dyspnea, Denies dyspnea on exertion, Denies orthopnea, Denies paroxysmal nocturnal dyspnea and Denies slow heart rate Resp Denies cough, Denies dyspnea and Denies dyspnea on exertion GI Denies abdominal pain, Denies change in bowel habits, Denies excessive flatus, Denies nausea and Denies vomiting Physical exam (Primary Care) Vital Signs: Last Vital Signs BP 132/80 10/11/23 15:20 BMI result Body Mass Index 36.3 Tobacco/Smoking Status: Tobacco use Status Tobacco use date assessed 10/11/23 10/11/23 15:29 Patient Tobacco Use Status Former Tobacco user 10/11/23 15:29 Tobacco use type Cigarette 10/11/23 15:29 e-Cigarette/Vaping Use Never Used 10/11/23 15:29 PHQ-9: PHQ-9 Score PHQ-9: Total score 0 10/11/23 16:10 Depression Screening Interpretation: Negative Thrive Assessment: Date of Thrive Assessment Date Thrive assessed 10/11/23 10/11/23 15:29 Currently or been in a relationship where the following occur: No concerns reported Resp Effort & Inspection: normal respiratory effort Auscultation: clear to auscultation bilaterally Cardio Jugular venous distension: no JVD Rate: regular rate Rhythm: regular rhythm Heart sounds: S1 normal heart sound present and S2 normal heart sound present Extrem General: Yes full ROM Results AMB Hemoglobin A1c AMB Hemoglobin A1c 6.6 % Last Edit by HARRY uMnoz on 10/11/23 15:35 Results Reviewed Results Reviewed: Laboratory Last Values Hgb A1c (Clinic) 6.6 % (4.0-6.0) H 10/11/23 15:19 Assessment and Plan Assessment & Plan (1) DM2 (diabetes mellitus, type 2): Code(s): E11.9 - Type 2 diabetes mellitus without complications Qualifiers: Diabetes mellitus nursing home insulin use: without nursing home use Diabetes mellitus complication status: without complication Qualified Code(s): E11.9 - Type 2 diabetes mellitus without complications Plan: Continue metformin. Increase Ozempic to 2 mg. A1c goal is equal or less than 7%. (2) Mixed hyperlipidemia: Code(s): E78.2 - Mixed hyperlipidemia Plan: Continue statins. LDL goal is less than 70. (3) Essential hypertension: Code(s): I10 - Essential (primary) hypertension Plan: Continue lisinopril. Blood pressure goal is equal or less than 130/80. 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 Monitor TSH. Orders: Orders Lipid Panel Today E78.5 - Hyperlipidemia, unspecified Comprehensive [place]. Panel Fast Today E11.9 - Type 2 diabetes mellitus without complications Thyroid Stimulating Hormone Today E03.8 - Other specified hypothyroidism, E06.3 - Autoimmune thyroiditis AMB Hemoglobin A1c Today E11.9 - Type 2 diabetes mellitus without complications Microalbumin, Random (w Creat) Today E11.9 - Type 2 diabetes mellitus without complications Vitamin D 25-OH Total Today E55.9 - Vitamin D deficiency, unspecified Magnesium Today E83.42 - Hypomagnesemia Medications: New semaglutide (Ozempic) 2 mg (0.75 mL) subcut QWEEK 3 mL 3RF 4 weeks E11.9 - Type 2 diabetes mellitus without complications Refilled zolpidem 5 mg PO BEDTIME PRN 30 tabs 0RF Insomnia 30 days loratadine 10 mg PO DAILY PRN 90 caps 3RF allergy symptoms 90 days Discontinued hydrochlorothiazide Discontinued Reason: Patient Completed Course 25 mg PO DAILY 90 days 90 tabs 1RF Coding Level of Care Code Est Pt Level 4 (66527) Complex EM visit Add On G2211 Diagnoses Type 2 diabetes mellitus without complication, without long-term current use of insulin E11.9 Diabetes mellitus nursing home insulin use: without watermelon inspector use Diabetes mellitus complication status: without complication Mixed hyperlipidemia E78.2 Essential hypertension I10 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
[2023-10-11 15:20] VITALS: BP 132/80; BMI 36.3
== END 2023-10-11 15:53 | disposition home or self-care (01) ==
PROVIDERS: PCP Internal Medicine; Visit Provider Internal Medicine
DX: E11.9 Type 2 diabetes mellitus without complications (principal); E78.2 Mixed hyperlipidemia; I10 Essential (primary) hypertension; E03.8 Other specified hypothyroidism; E06.3 Autoimmune thyroiditis
CPT/HCPCS: 83036; 99214; G2211

== ENCOUNTER 2024-02-28 12:51 | Outpatient (AMB) | payer OTHER, SELFPAY ==
--- NOTE | 2024-02-28 13:00 | MHC.PC.OV ---
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 Required: No Accompanied by: Self / Same As Patient Allergies mint [MINT] Allergy (Intermediate, Verified 02/28/24 14:24) BRUISING OF FEET Medication List - Last Reconciled 02/28/24 by Gem Linares MD apixaban (Eliquis) 5 mg PO BID 90 days atorvastatin 40 mg PO BEDTIME 90 days blood sugar diagnostic (FreeStyle Test strips) Use 1 test strip once a day blood-glucose meter (FreeStyle [place] Lite kit) As directed cholecalciferol (vitamin D3) 50 mcg PO DAILY 90 days diclofenac sodium 1% (Arthritis Pain (diclofenac)) 2 grams topical QID 30 days docusate sodium (Colace) 100 mg PO DAILY PRN 30 days fenofibrate 160 mg PO DAILY 90 days lancets (FreeStyle Lancets) Use 1 lancet daily to test blood glucose. levothyroxine 150 mcg PO DAILY 90 days lisinopril 10 mg PO DAILY 90 days loratadine 10 mg PO DAILY PRN 90 days magnesium oxide 400 mg PO DAILY 30 days meloxicam 15 mg PO DAILY 90 days metformin 500 mg PO BID 90 days omeprazole 20 mg PO DAILY 90 days semaglutide (Ozempic) 2 mg (0.75 mL) subcut QWEEK 4 weeks venlafaxine ER 37.5 mg PO DAILY 90 days walker As directed zolpidem 5 mg PO BEDTIME PRN 30 days Tobacco use date assessed: 10/11/23 Dental Screening Dental Screen Date: 10/11/23 HPI HPI Comments History of Present Illness Details The patient is a 58-year-old male presenting for a follow-up related to his diabetes mellitus type 2 and essential hypertension. The patient reports utilizing Ozempic, which has led to significant weight loss, decreasing from pant size 40 to 36. His last A1c was noted to be at 6%, indicating well-controlled blood glucose levels. The patient uses Metformin as part of his diabetes management regimen. Additionally, the patient reports an excellent blood pressure control with current measurement at 122/80 mmHg, managed with Lisinopril 10 mg. He also has a history of hyperlipidemia, managed with Atorvastatin 40 mg and Fenofibrate 160 mg. For hypothyroidism, he continues on Levothyroxine 150 mcg daily. The patient reports chronic pain localized under the right rib, described as pulsating. He notes the pain's intensity occasionally prevents him from bending over to put on socks. The onset is intermittent over recent days with episodes lasting a few days. Currently, there is no report of aggravating or alleviating factors. [facility] Medical History Numbness of right foot Right upper quadrant abdominal pain Dyslipidemia DM2 (diabetes mellitus, type 2) Obesity due to excess calories Mixed hyperlipidemia Diabetes mellitus Sciatica Lumbar stenosis Essential hypertension Hypothyroidism History of DVT (deep vein thrombosis) Lumbar degenerative disc disease GERD (gastroesophageal reflux disease) Surgical History Status post cervical spinal fusion History of lithotripsy History of adenoidectomy History of breast biopsy Family History Mother Hypertension Father Diabetes Hypertension Stroke Brother No problems noted. Brother No problems noted. Sister No problems noted. Son In good health Son In good health Son In good health Son In good health Social History Household Members: Spouse Housing: Apartment Alcohol intake: former Patient Tobacco Use Status: Former Tobacco user Tobacco use type: Cigarette Years Smoked: quit 20 years ago e-Cigarette/Vaping Use: Never Used Second Hand Smoke Exposure: Yes Substance Use Type: Crack/Cocaine, Former Substance User and Marijuana service: No Current occupational status: disabled Cognitive needs: Yes Hearing needs: No Vision needs: Yes Questionnaire Thrive Questionnaire Date Thrive assessed: 10/11/23 JENARO-7 AMB Questionnaire JENARO-7 Date JENARO - 7 assessed: 10/11/23 Source: Developed by Drs. Robby Rodriguez, Daysi Gonzalez, Chu Casper and colleagues, with an educational christian from [employer]. Review of Systems Const Details: - Musculoskeletal: Reports pulsating pain under the right rib. - Gastrointestinal: Denies continuous use of Omeprazole, used only as needed for acid reflux. - Neurological: Reports tinnitus, intermittent buzzing in ears. Physical exam (Primary Care) Vital Signs: Last Vital Signs BP 122/80 02/28/24 13:03 General: No confusion Respiratory: Normal respiratory effort, clear to auscultation bilaterally Cardiovascular: No jugular venous distension, regular rate, regular rhythm, S1 normal heart sound present and S2 normal heart sound present Extremities: Full ROM, use a cane Psychology: Grossly normal BMI result Body Mass Index 36.1 Tobacco/Smoking Status: Tobacco use Status Tobacco use date assessed 10/11/23 02/28/24 13:06 Patient Tobacco Use Status Former Tobacco user 02/28/24 13:06 Tobacco use type Cigarette 02/28/24 13:06 e-Cigarette/Vaping Use Never Used 02/28/24 13:06 Thrive Assessment: Date of Thrive Assessment Date Thrive assessed 10/11/23 02/28/24 13:06 Office Procedures Flu Questionnaire Does the patient have a severe egg allergy?: No Results AMB Hemoglobin A1c AMB Hemoglobin A1c 6.0 % Last Edit by HARRY Munoz on 02/28/24 13:13 Immunizations Fluarix Triv [id number] (PF) 45 mcg (15 mcg x 3)/0.5 mL IM syringe Performing Provider: Gem Linares MD Performing [facility] Documented (not given) by: HARRY Munoz on 02/28/24 13:06 Reason Not Given: Patient Refused Results Reviewed Results Reviewed: Laboratory Last Values Hgb A1c (Clinic) 6.0 % (4.0-6.0) 02/28/24 12:59 Coding Level of Care Code Est Pt Level 4 (68107) Complex EM visit Add On G2211 Diagnoses Rib pain on right side R07.81 Type 2 diabetes mellitus without complication, without long-term current use of insulin E11.9 Diabetes mellitus senior living insulin use: without senior living use Diabetes mellitus complication status: without complication Mixed hyperlipidemia E78.2 Essential hypertension I10 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; E06.3 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 Lumbar degenerative disc disease M51.36 Time Spent (min) 22 Assessment & Plan Assessment & Plan (1) Rib pain on right side: Code(s): R07.81 - Pleurodynia Category: Medical (2) DM2 (diabetes mellitus, type 2): Code(s): E11.9 - Type 2 diabetes mellitus without complications Category: Medical Qualifiers: Diabetes mellitus senior living insulin use: without senior living use Diabetes mellitus complication status: without complication Qualified Code(s): E11.9 - Type 2 diabetes mellitus without complications (3) Mixed hyperlipidemia: Code(s): E78.2 - Mixed hyperlipidemia Category: Medical (4) Essential hypertension: Code(s): I10 - Essential (primary) hypertension Category: Medical (5) Hypothyroidism: Code(s): E03.9 - Hypothyroidism, unspecified Category: Medical Qualifiers: 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 Encouraged adherence to the prescribed medications. - Essential Hypertension: Continue with Lisinopril 10 mg. Prescriptions for refills have been updated. - Hyperlipidemia: Maintain current therapy with Atorvastatin and Fenofibrate. - Hypothyroidism: Continue Levothyroxine 150 mcg daily. - Allergic Rhinitis: Refill for Loratadine as needed. - GERD: Omeprazole prescribed for use as needed. - Constipation: Prescribed Colace for management and a refill provided. - Chronic Pain under Right Rib: Recommend a chest X-ray to investigate the cause of pain under the right rib. - Tinnitus: No changes suggested unless further symptoms develop. - Insomnia: Prescribed Solpidem for management; monitor for any side effects such as somnambulism. Patient was informed and verbally consented to the use of an ambient scribe for clinic note documentation during this visit. During the visit, I discussed with the patient his well-controlled diabetes, highlighting the positive impact of his weight loss and A1c levels. We reviewed the importance of medication adherence for both diabetes and hypertension management. I informed the patient about the potential side effects of Solpidem, including sonambulistic behavior. I explained the need for diagnostic imaging, specifically a chest X-ray, to explore the etiology of the pain under the right rib. Furthermore, the necessity of continuing a low-sodium diet, regular exercise, and periodic laboratory testing, especially before international travel, was emphasized. Orders: Orders AMB Hemoglobin A1c Today E11.9 - Type 2 diabetes mellitus without complications Influenza [id number] Immunization Today Z23 - Encounter for immunization Lipid Panel Today E78.5 - Hyperlipidemia, unspecified Vitamin D 25-OH Total Today E55.9 - Vitamin D deficiency, unspecified Microalbumin, Random (w Creat) Today R80.9 - Proteinuria, unspecified Magnesium Today E83.42 - Hypomagnesemia Comprehensive [place]. Panel Fast Today E11.9 - Type 2 diabetes mellitus without complications Thyroid Stimulating Hormone Today E03.8 - Other specified hypothyroidism, E06.3 - Autoimmune thyroiditis XR ribs RT 2V Today R07.81 - Pleurodynia Medications: Refilled magnesium oxide 400 mg PO DAILY 30 tabs 2RF 30 days omeprazole 20 mg PO DAILY 90 caps 2RF 90 days metformin 500 mg PO BID 180 tabs 3RF 90 days E11.9 - Type 2 diabetes mellitus without complications semaglutide (Ozempic) 2 mg (0.75 mL) subcut QWEEK 3 mL 3RF 4 weeks E11.9 - Type 2 diabetes mellitus without complications zolpidem 5 mg PO BEDTIME PRN 30 tabs 0RF Insomnia 30 days atorvastatin 40 mg PO BEDTIME 90 tabs 1RF 90 days E78.2 - Mixed hyperlipidemia cholecalciferol (vitamin D3) 50 mcg PO DAILY 90 caps 1RF 90 days lancets (FreeStyle Lancets) Use 1 lancet daily to test blood glucose. 100 ea 5RF E11.9 - Type 2 diabetes mellitus without complications lisinopril 10 mg PO DAILY 90 tabs 3RF 90 days I10 - Essential (primary) hypertension loratadine 10 mg PO DAILY PRN 90 caps 3RF allergy symptoms 90 days meloxicam 15 mg PO DAILY 90 tabs 0RF 90 days apixaban (Eliquis) 5 mg PO BID 180 tabs 1RF 90 days docusate sodium (Colace) 100 mg PO DAILY PRN 30 caps 0RF constipation 30 days fenofibrate 160 mg PO DAILY 90 tabs 1RF 90 days Discontinued venlafaxine ER Discontinued Reason: Patient Completed Course 37.5 mg PO DAILY 90 days 90 caps 0RF Patient Instructions: - Continue current medications as prescribed for diabetes, hypertension, hyperlipidemia, and hypothyroidism. - Schedule a chest X-ray at the earliest convenience for evaluation of rib pain. - Use Omeprazole as needed for reflux symptoms. - Monitor for side effects related to Solpidem. - Follow up with our office for review of imaging results. - Maintain frequent check-ins of blood pressure at home. - Prioritize rest and care while visiting family. - Notify our office of any new or worsening symptoms immediately.
[2024-02-28 13:03] VITALS: BP 122/80; BMI 36.1
== END 2024-02-28 14:36 | disposition home or self-care (01) ==
PROVIDERS: PCP Internal Medicine; Visit Provider Internal Medicine
DX: R07.81 Pleurodynia (principal); E11.9 Type 2 diabetes mellitus without complications; E78.2 Mixed hyperlipidemia; I10 Essential (primary) hypertension; E03.8 Other specified hypothyroidism; E06.3 Autoimmune thyroiditis; M51.369 Other intervertebral disc degeneration, lumbar region without mention of lumbar back pain or lower extremity pain; Z23 Encounter for immunization

== ENCOUNTER → 2024-02-28 12:51 | Outpatient (BNVA) | payer OTHER, SELFPAY | PROVIDERS: PCP Internal Medicine; Visit Provider Internal Medicine | DX: R07.81 Pleurodynia (principal); E11.9 Type 2 diabetes mellitus without complications; E78.2 Mixed hyperlipidemia; I10 Essential (primary) hypertension; E03.8 Other specified hypothyroidism; E06.3 Autoimmune thyroiditis; M51.369 Other intervertebral disc degeneration, lumbar region without mention of lumbar back pain or lower extremity pain | CPT/HCPCS: 83036; 90471; 99212 ==

== ENCOUNTER 2024-05-13 10:34 | Outpatient (REF) | payer OTHER, SELFPAY ==
--- OUTSIDE RECORDS SUMMARY | 2024-05-13 10:37 | XMS_ITS | Clinical Summary ---
Author Organization [facility] Address [address] [place] [address] Care Team Providers Care Drop Tester Name Role Phone Gem Fields MD Primary Care Provid er Social History Tobacco Use Types Packs/Day Years Used Date Smoking Tobacco: Never Assessed Sex and Gender Information Value Date Recorded Sex Assigned at Not on file Gender Identity Not on file Sexual Orientation Not on file Plan of Treatment Health Maintenance Due Date Last Done Comments Hepatitis C Screening 1965 COVID-19 Vaccine (#1) 1963 Depression Screening 1975 Preventative Health Evaluation 1981 DTap / Tdap / Td (1 - Tdap) 1982 Colon Cancer Screening (Colonoscopy) 2008 Shingrix-Zoster Vaccine (1 of 2) 2013 Influenza Vaccine (#1) 2023 RSV Adult > 60+ Yrs or Pregn ant (1 - 1-dose 75+ series) 2038 Hepatitis B Vaccines Aged Out No long er eligible based on patient's age to complete this topic Pneumococcal Vaccine Aged Out No long er eligible based on patient's age to complete this topic RSV Ped < 20 months Aged Out No longe r eligible based on patient's age to complete this topic Care Teams Drop Tester Relationship Specialty Start Date End Date Gem Fields MD [address] [facility] , [address] [facility] D/B/A: [facility] [place] [address] PCP - General Internal Medicine 01/24/18
[2024-05-13 12:03] LABS: Alanine Aminotransferase 26 U/L (0-40); Albumin Level 4.5 g/dL (3.5-5.0); Alkaline Phosphatase 55 U/L (39-117); Anion Gap 14 (12-20); Aspartate Amino Transferase 16 U/L (5-37); Bilirubin Total 0.5 mg/dL (0.0-1.0); Blood Urea Nitrogen 15 mg/dL (9-16); Carbon Dioxide 26 mmol/L (22-29); Chloride 102 mmol/L (96-108); Cholesterol 215 mg/dL (<200); Estimated Glomerular Filt Rate > 60; Glucose Fasting 109 mg/dL (60-99); HDL Cholesterol 46 mg/dL (>40); LDL Cholesterol Calculated 121 mg/dL (<100); Magnesium 2.1 mg/dL (1.6-2.6); Potassium 3.8 mmol/L (3.3-5.1); Sodium 138 mmol/L (135-145); Total Protein 7.9 g/dL (6.5-8.0); Triglycerides 242 mg/dL (<150)
[2024-05-13 12:08] LABS: Creatinine Urine 192.41 mg/dL; Microalbum/Creatinine Ratio Ur 6.2 ug/mg cr (<30)
[2024-05-13 12:22] LABS: Vitamin D 25-OH Total 29.6 ng/mL (>30)
== END 2024-05-13 10:35 | disposition home or self-care (01) ==
LOC: HO.LAB 10:34
PROVIDERS: PCP Internal Medicine; Visit Provider Internal Medicine
DX: E11.9 Type 2 diabetes mellitus without complications (principal); E03.8 Other specified hypothyroidism; E06.3 Autoimmune thyroiditis; E78.5 Hyperlipidemia, unspecified; E83.42 Hypomagnesemia
CPT/HCPCS: 36415; 80053; 80061; 82043; 82306; 82570; 83735; 84443

== ENCOUNTER 2024-05-15 13:16 | Outpatient (AMB) | payer OTHER, SELFPAY ==
--- OUTSIDE RECORDS SUMMARY | 2024-05-15 13:36 | XMS_ITS | Clinical Summary ---
Author Organization [facility] ity Address [address] [place] [address] Care Team Providers Care Solid Waste Landfill Technician Name Role Phone Gem Linares MD Primary Care Provider [phone] Social History Tobacco Use Types Packs/Day Years Used Date Smoking Tobacco: Never Assessed Sex and Gender Information Value Date Recorded Sex Assigned at Not on file Legal Sex Male 4:49 AM EST Gender Identity Not on file Sexual Orientation Not on file Plan of Treatment Health Maintenance Due Date Last Done Comments DTaP,Tdap,and Td Vaccines (1 - Tdap) 1982 Pneumococcal Vaccine: 50+ Ye ars (1 of 1 - PCV) 2013 Zoster Vaccines (1 of 2) 2013 Cholesterol Screening (Lipid Panel) 02/27/2022 Colorectal Cancer Screening: Colonoscopy 02/27/2022 Depression Screening 02/27/2022 HIV Screening 02/27/2022 Hepatitis C Screening 02/27/2022 Social Influencers of Health Screening 02/27/2022 COVID-19 Vaccine ( - 2023-2 5 season) 2023 Influenza Vaccine (#1) 2023 RSV Immunization Patients 60 + Years Old (1 - 1-dose 75+ series) 2038 HIB Vaccines Aged Out No longer eligi ble based on patient's age to complete this topic HPV Vaccines Aged Out No longer eligi ble based on patient's age to complete this topic Hepatitis A Vaccines Aged Out No long er eligible based on patient's age to complete this topic Hepatitis B Vaccines Aged Out No long er eligible based on patient's age to complete this topic IPV Vaccines Aged Out No longer eligi ble based on patient's age to complete this topic MMR Vaccines Aged Out No longer eligi ble based on patient's age to complete this topic Meningococcal ACWY Vaccine Aged Out N o longer eligible based on patient's age to complete this topic Meningococcal B Vacine Aged Out No lo nger eligible based on patient's age to complete this topic Pneumococcal Vaccine: Pediat rics (0 to 5 Years) and At-Risk Patients (6 to 64 Years) Aged Out No longer eligible b ased on patient's age to complete this topic RSV Immunization Patients Un peg 20 months Aged Out No longer eligible b ased on patient's age to complete this topic Varicella Vaccines Aged Out No longer eligible based on patient's age to complete this topic Care Teams Solid Waste Landfill Technician Relationship Specialty Start Date End Date Gem Linares MD [address] [place] [address] , [address] [facility] D/B/A: [facility] DM[facility] Rondon PCP - General Internal Medicine 01/24/18
--- OUTSIDE RECORDS SUMMARY | 2024-05-15 13:36 | XMS_ITS | Clinical Summary ---
Author Organization [facility] Address [address] [place] [address] Care Team Providers Care Range Conservationist Name Role Phone Gem Fields MD Primary [...] age to complete this topic Care Teams Range Conservationist Relationship Specialty Start Date End Date Gem Fields MD [address] [facility] , [address] [facility] D/B/A: [facility] [place] [address] PCP - General Internal Medicine 01/24/18
--- NOTE | 2024-05-15 13:37 | MHC.PC.OV ---
Vital Signs 05/15/24 13:45 Height 5 ft 3 in Weight 205 lb BMI 36.3 BP 130/80 Blood Pressure Location Lt brachial Position Sitting Intake Visit Reasons: Annual Exam Intake Note: Patient here for a annual physical exam Clarifier Operator Helper Required: Yes Clarifier Operator Helper Language: Bail Bond Agent Name: Gem Linares MD Information Interpreted: non-clinical & clinical Accompanied by: Self / Same As Patient Allergies mint [MINT] Allergy (Intermediate, Verified 05/15/24 13:56) BRUISING OF FEET Medication List - Last Reconciled 05/15/24 by Gem Linares MD apixaban (Eliquis) 5 mg PO BID 90 days atorvastatin 40 mg PO BEDTIME 90 days blood sugar diagnostic (FreeStyle Test strips) Use 1 test strip once a day blood-glucose meter (FreeStyle Childwold Lite kit) As directed cholecalciferol (vitamin D3) 50 mcg PO DAILY 90 days diclofenac sodium 1% (Arthritis Pain (diclofenac)) 2 grams topical QID 30 days docusate sodium (Colace) 100 mg PO DAILY PRN 30 days fenofibrate 160 mg PO DAILY 90 days lancets (FreeStyle Lancets) Use 1 lancet daily to test blood glucose. levothyroxine 150 mcg PO DAILY 90 days lisinopril 10 mg PO DAILY 90 days loratadine 10 mg PO DAILY PRN 90 days magnesium oxide 400 mg PO DAILY 30 days meloxicam 15 mg PO DAILY 90 days metformin 500 mg PO BID 90 days omeprazole 20 mg PO DAILY 90 days semaglutide (Ozempic) 2 mg (0.75 mL) subcut QWEEK 4 weeks walker As directed zolpidem 5 mg PO BEDTIME PRN 30 days Tobacco use date assessed: 05/15/24 Dental Screening Dental Screen Date: 05/15/24 Did you have a dental visit in the last 12 months?: Yes Did you have a dental problem in the last 6 months where you did not have access to dental care?: No Was dental information given to patient?: Patient has dentist HPI HPI Comments History of Present Illness Details The patient is a 59-year-old male presenting for his physical exam. He has right flank pain and left posey pain. He reports a couple of days of significant pain on the right side, describing the pain as severe and affecting his mobility. The pain hinders his ability to wear socks and originates near the costal area, suspected to be near the liver or kidney region. Additionally, he experiences pain in the left posey, especially when transitioning from sitting to standing. The posey pain can be severe but tends to resolve shortly after starting to walk. Historically, he has experienced episodes of venous thromboembolism and is currently on anticoagulant therapy (Eliquis). The patient's hyperlipidemia shows elevated cholesterol at 215 mg/dL, triglycerides at 242 mg/dL, and LDL at 121 mg/dL. Treatment includes atorvastatin; however, the therapeutic dose is discussed for adjustment due to suboptimal LDL levels. Diabetes management is stable with an A1C of 6.0 as of February. - Recommendation for Tetanus vaccination as it has been more than 10 years since the last dose. - Colonoscopy due next year (2023), with the last performed in 2015. - Blood Pressure is well-managed on current medication. - Dietary counseling for hyperlipidemia. - Diabetes management reinforced, considering current stable A1C. - Discussed potential increase in atorvastatin dosage for better LDL control. [facility] Medical History (Updated 05/15/24 @ 14:10 by Gem Linares MD) Numbness of right foot Right upper quadrant abdominal pain Dyslipidemia DM2 (diabetes mellitus, type 2) Obesity due to excess calories Mixed hyperlipidemia Diabetes mellitus Sciatica Lumbar stenosis Essential hypertension Hypothyroidism History of DVT (deep vein thrombosis) Lumbar degenerative disc disease GERD (gastroesophageal reflux disease) Surgical History Status post cervical spinal fusion History of lithotripsy History of adenoidectomy History of breast biopsy Family History (Updated 05/15/24 @ 14:03 by Gem Linares MD) Mother No problems noted. Father Diabetes Hypertension Stroke Brother No problems noted. Brother No problems noted. Sister No problems noted. Son In good health Son In good health Son In good health Son In good health Social History Household Members: Spouse Housing: Apartment Alcohol intake: former Patient Tobacco Use Status: Former Tobacco user Tobacco use type: Cigarette Years Smoked: quit 20 years ago e-Cigarette/Vaping Use: Never Used Second Hand Smoke Exposure: Yes Substance Use Type: Crack/Cocaine, Former Substance User and Marijuana service: No Current occupational status: disabled Cognitive needs: Yes Hearing needs: No Vision needs: Yes Questionnaire PHQ-9 Over the last 2 weeks, how often have you been bothered by any of the following problems? 1. Little interest or pleasure in doing things: not at all 2. Feeling down, depressed, or hopeless: not at all 3. Trouble falling or staying asleep, or sleeping too much: not at all 4. Feeling tired or having little energy: not at all 5. Poor appetite or overeating: not at all 6. Feeling bad about yourself - or that you are a failure or have let yourself or your family down: not at all 7. Trouble concentrating on things, such as reading the newspaper or watching television: not at all 8. Moving or speaking so slowly that other people could have noticed. Or the opposite - being so fidgety or restless that you have been moving around a lot more than usual: not at all 9. Thoughts that you would be better off or of hurting yourself in some way: not at all Total score: 0 Depression Screening Interpretation: Negative Depression Screening Done: Yes 23719 - PHQ-9 Billing: Yes Source: Developed by Drs. Robby Rodriguez, Daysi Gonzalez, Chu Casper and colleagues, with an educational christian from [employer]. Thrive Questionnaire Date Thrive assessed: 05/15/24 I am a: Patient What is your living situation today?: I have a steady place to live Within the past 12 months, did the food you bought not last and you didn't have the money to get more?: Often true Within the past 12 months, did you worry whether your food would run out before you got money to buy more?: Never true Do you have trouble paying for medicines?: No Do you have trouble getting transportation to medical appointments?: No Do you have trouble paying your heating and electricity bill?: No Do you have trouble taking care of your child, family member or friend?: No Do you have trouble with day-to-day activities such as bathing, preparing meals, shopping, managing finances, etc.?: No Are you currently unemployed and looking for a job?: I choose not to answer this question Are you interested in more education?: No Please select the resources that you would like help with: None Currently or been in a relationship where the following occur: No concerns reported THRIVE Score: 1 AUDIT C Alcohol Use Questionnaire (AUDIT-C) 1. How often do you have a drink containing alcohol?: Never Total Score: 0 Score Reviewed/Action Taken: No JENARO-7 AMB Questionnaire JENARO-7 Date JENARO - 7 assessed: 05/15/24 Feeling nervous, anxious, or on edge: 0 = Not at all Not being able to stop or control worryin = Not at all Worrying too much about different things: 0 = Not at all Trouble relaxin = Not at all Being so restless that it is hard to sit still: 0 = Not at all Becoming easily annoyed or irritable: 0 = Not at all Feeling afraid as if something awful might happen: 0 = Not at all Total JENARO-7 score (0-4 normal; 5-9 mild; 10-14 moderate; 15-21 severe): 0 Source: Developed by Drs. Robby Rodrgiuez, Daysi Gonzalez, Chu Casper and colleagues, with an educational christian from [employer]. JENARO-7 Assessment Billing JENARO-7 Assessment Tool: JENARO-7 Assessment 09040 Review of Systems Const All systems reviewed & are unremarkable except as noted in HPI and below Card Denies chest pain at rest, Denies chest pain with activity, Denies edema, Denies irregular heart rhythm, Denies claudication, Denies dyspnea, Denies dyspnea on exertion, Denies orthopnea, Denies paroxysmal nocturnal dyspnea and Denies slow heart rate Resp Denies cough, Denies dyspnea and Denies dyspnea on exertion GI Denies abdominal pain, Denies change in bowel habits, Denies excessive flatus, Denies nausea and Denies vomiting Denies urinary hesitancy, Denies urinary incontinence and Denies urinary urgency Musc Denies atrophy, Denies deformity and Denies limited range of motion Skin/Breast Denies bleeding lesions, Denies changing lesions and Denies rash Physical exam (Primary Care) Vital Signs: Last Vital Signs BP 130/80 05/15/24 13:45 BMI result Body Mass Index 36.3 BMI Assessment/Plan discussion: High BMI High, discussed plan: lifestyle, weight reduction, dietary and physical activity Tobacco/Smoking Status: Tobacco use Status Tobacco use date assessed 05/15/24 05/15/24 13:42 Patient Tobacco Use Status Former Tobacco user 05/15/24 13:42 Tobacco use type Cigarette 05/15/24 13:42 e-Cigarette/Vaping Use Never Used 05/15/24 13:42 PHQ-9: PHQ-9 Score PHQ-9: Total score 0 05/15/24 14:19 Depression Screening Interpretation: Negative Thrive Assessment: Date of Thrive Assessment Date Thrive assessed 05/15/24 05/15/24 13:42 Currently or been in a relationship where the following occur: No concerns reported Eyes General: appearance normal, both eyes and all related structures Eyelids: Yes eyelids normal Conjunctivae: conjunctivae normal Neck Neck: Yes normal visual inspection and Yes supple Resp Effort & Inspection: normal respiratory effort Auscultation: clear to auscultation bilaterally Cardio Jugular venous distension: no JVD Rate: regular rate Rhythm: regular rhythm Heart sounds: S1 normal heart sound present and S2 normal heart sound present GI Inspection: Yes normal to inspection Palpation (GI): Soft to palpation and nontender Auscultation: normal bowel sounds Skin General skin exam: no rashes or lesions noted Neuro General: no focal motor deficits Extrem Other: Jorje's sign positive in left leg General: Yes full ROM Psych Appearance: grossly normal Coding Level of Care Code Est Pt Level 3 (48112) Est Pt Prev Care 40-64y(03167) Diagnoses Physical exam Z00.00 Type 2 diabetes mellitus without complication, without long-term current use of insulin E11.9 Diabetes mellitus long wall mining machine tender insulin use: without assisted use Diabetes mellitus complication status: without complication Right upper quadrant abdominal pain R10.11 Left leg pain M79.605 Additional Codes JENARO-7 Assessment Billing - JENARO-7 Assessment Tool: JENARO-7 Assessment 82359 ([id number]) PHQ-9 - 76157 - PHQ-9 Billing: Yes ([id number]) Time Spent (min) 34 Assessment & Plan Assessment & Plan (1) Physical exam: Code(s): Z00.00 - Encounter for general adult medical examination without abnormal findings Category: Medical (2) DM2 (diabetes mellitus, type 2): Code(s): E11.9 - Type 2 diabetes mellitus without complications Category: Medical Qualifiers: Diabetes mellitus long wall mining machine tender insulin use: without long wall mining machine tender use Diabetes mellitus complication status: without complication Qualified Code(s): E11.9 - Type 2 diabetes mellitus without complications (3) Right upper quadrant abdominal pain: Code(s): R10.11 - Right upper quadrant pain Category: Medical (4) Left leg pain: Code(s): M79.605 - Pain in left leg Category: Medical Plan - Continue current medication regimen with consideration of increasing atorvastatin to 80mg to manage LDL levels better. - Ultrasound ordered for the right flank and abdomen to investigate pain etiology, considering gallbladder or liver origin. - Ultrasound for the left leg to rule out new deep vein thrombosis. - Tetanus vaccine deferred upon the patient's decision. - Follow-up for blood work in 6 months to track lipid profile and diabetes control. Patient was informed and verbally consented to the use of an ambient scribe for clinic note documentation during this visit. I discussed with the patient the importance of managing his cholesterol, given the elevated LDL levels, especially in the context of diabetes. While he expressed concerns about the side effects of increased atorvastatin, we considered the cardiovascular benefits. We decided to proceed with imaging to identify the source of abdominal pain and the potential leg clot. Consent for all discussed procedures was obtained verbally. We reviewed the continued need for anticoagulation and acknowledged no recurrence of thrombotic episodes since his last assessment. The patient expresses understanding of his management plan. Orders: Orders US abdomen complete Today R10.11 - Right upper quadrant pain Microalbumin, Random (w Creat) 6 Months R80.9 - Proteinuria, unspecified Comprehensive [place]. Panel Fast 6 Months R10.11 - Right upper quadrant pain US venous duplex LE LT Today M79.605 - Pain in left leg Lipid Panel 6 Months E78.5 - Hyperlipidemia, unspecified Vitamin D 25-OH Total 6 Months E55.9 - Vitamin D deficiency, unspecified Thyroid Stimulating Hormone 6 Months E03.8 - Other specified hypothyroidism, E06.3 - Autoimmune thyroiditis Medications: New atorvastatin 80 mg PO BEDTIME 90 tabs 1RF 90 days Discontinued atorvastatin Discontinued Reason: Patient Completed Course 40 mg PO BEDTIME 90 days 90 tabs 1RF E78.2 - Mixed hyperlipidemia Patient Instructions: - Continue taking all prescribed medications as directed. - Monitor and record any changes in pain or new symptoms. - Attend scheduled ultrasounds for abdomen and leg. - Report any adverse effects of medications or significant changes in health promptly. - Maintain current diet and exercise program as discussed, accommodating any new physical limitations. - Return for follow-up in 6 months or sooner if symptoms worsen.
[2024-05-15 13:45] VITALS: BP 130/80; BMI 36.3
== END 2024-05-15 14:10 | disposition home or self-care (01) ==
PROVIDERS: PCP Internal Medicine; Visit Provider Internal Medicine
DX: Z00.00 Encounter for general adult medical examination without abnormal findings (principal); E11.9 Type 2 diabetes mellitus without complications; R10.11 Right upper quadrant pain; M79.605 Pain in left leg

== ENCOUNTER → 2024-05-15 13:16 | Outpatient (BNVA) | payer OTHER, SELFPAY | PROVIDERS: PCP Internal Medicine; Visit Provider Internal Medicine | DX: Z00.00 Encounter for general adult medical examination without abnormal findings (principal); E11.9 Type 2 diabetes mellitus without complications; R10.11 Right upper quadrant pain; M79.605 Pain in left leg | CPT/HCPCS: 96127; 99212; 99396 ==

== ENCOUNTER 2024-05-15 14:27 | Outpatient (REF) | payer OTHER, SELFPAY ==
--- NOTE | ~2024-05-15 | US_ITS ---
EXAMINATION: US TRIPLEX LOWER EXTREMITY, LEFT CLINICAL INFORMATION: History of nonocclusive thrombus, left popliteal vein. COMPARISON: None available. TECHNIQUE: Color-flow triplex imaging with spectral analysis and compression Doppler were performed on the left lower extremity. FINDINGS: Respiratory variation, normal compression and augmented flow are noted throughout the visualized common femoral vein, superficial femoral vein, profunda femoral vein, and midcalf peroneal and posterior tibial venous segments. There is partial compressibility in the distal left popliteal vein and partial flow. There is no Raphael's cyst. US/US venous duplex LE LT IMPRESSION: Nonocclusive thrombus, distal left popliteal vein. Probable chronic. Superimposed acute thrombus cannot be excluded. Patient on anticoagulation therapy. Electronically signed by: Antoine Enciso MD 05/15/2024 03:38 PM KAILEY
--- OUTSIDE RECORDS SUMMARY | 2024-05-15 14:33 | XMS_ITS | Clinical Summary ---
Author Organization [facility] ity Address [address] [place] [address] Care Team Providers Care Casting Machine Set Up Operator Name Role Phone Gem Linares MD Primary Care Provider [phone] Social History Tobacco Use Types Packs/Day Years [...] age to complete this topic Care Teams Casting Machine Set Up Operator Relationship Specialty Start Date End Date Gem Linares MD [address] [place] [address] , [address] [facility] D/B/A: [facility] DM[facility]RY Rondon PCP - General Internal Medicine 01/24/18
--- OUTSIDE RECORDS SUMMARY | 2024-05-15 14:33 | XMS_ITS | Clinical Summary ---
Author Organization [facility] Address [address] [place] [address] Care Team Providers Care City Driver Name Role Phone Gem Fields MD Primary [...] age to complete this topic Care Teams City Driver Relationship Specialty Start Date End Date Gem Fields MD [address] [facility] , [address] [facility]ician [facility] D/B/A: [facility] [place] [address] PCP - General Internal Medicine 01/24/18
== END 2024-05-15 14:28 | disposition home or self-care (01) ==
LOC: HO.US 14:27
PROVIDERS: PCP Internal Medicine; Visit Provider Internal Medicine
DX: M79.605 Pain in left leg (principal)
CPT/HCPCS: 93971

== ENCOUNTER → 2024-05-15 14:33 | Outpatient (BNV) | payer OTHER, SELFPAY | PROVIDERS: PCP Internal Medicine; Visit Provider Radiology Diagnostic Radiology | DX: I82.432 Acute embolism and thrombosis of left popliteal vein (principal) | CPT/HCPCS: 93971 ==

== ENCOUNTER 2024-06-14 09:01 | Outpatient (REF) | payer OTHER, SELFPAY ==
--- NOTE | ~2024-06-14 | US_ITS ---
EXAMINATION: US ABDOMEN HISTORY: R10.11 - Right upper quadrant pain TECHNIQUE: Real-time grayscale ultrasound imaging of the abdomen was performed and images were reviewed. COMPARISON: Comparison is made with the prior examination dated 05/31/2021. FINDINGS: Liver: The right lobe of the liver measures 13.2 cm in size. The left lobe of the liver measures 9.4 cm in size. The liver demonstrates increased echotexture, consistent with steatosis. There is focal fatty sparing adjacent to the gallbladder. No focal mass or intrahepatic biliary ductal dilatation is identified. There is normal hepatopedal flow in the portal vein. Gallbladder and biliary tree: The gallbladder is unremarkable, without evidence of calculi, wall thickening, or pericholecystic fluid. There is no sonographic Resendiz sign. The common bile duct is normal in caliber measuring 5 mm. Kidneys: The right kidney measures 13.2 cm in length. The left kidney measures 11.9 cm in length. The kidneys are unremarkable, without evidence of masses, hydronephrosis, or calculi. Pancreas: The pancreatic head, neck, and body are unremarkable. The pancreatic tail is obscured by bowel gas. Spleen: The spleen is normal in size and contour, measuring 11.8 cm in length. Abdominal aorta and inferior vena cava: The visualized portions of the abdominal aorta and inferior vena cava are normal in caliber. There is no free fluid in the abdomen. US/US abdomen complete IMPRESSION: Hepatic steatosis. Electronically signed by: Robby Cordova MD 06/14/2024 10:58 AM EDT
--- OUTSIDE RECORDS SUMMARY | 2024-06-14 09:36 | XMS_ITS | Clinical Summary ---
Author Organization [facility] ity Address [address] [place] [address] Care Team Providers Care Cherry Cutter Name Role Phone Gem Linares MD Primary Care Provider [phone] Social History Tobacco Use Types Packs/Day Years [...] age to complete this topic Care Teams Cherry Cutter Relationship Specialty Start Date End Date Gem Linares MD [address] [place] [address] , [address] [facility] Associ D/B/A: [facility] DMITRY Rondon PCP - General Internal Medicine 01/24/18
--- OUTSIDE RECORDS SUMMARY | 2024-06-14 09:36 | XMS_ITS | Clinical Summary ---
Author Organization [facility] Address [address] [place] [address] Care Team Providers Care Legal Process Specialist Name Role Phone Gem Fields MD Primary [...] age to complete this topic Care Teams Legal Process Specialist Relationship Specialty Start Date End Date Gem Fields MD [address] [facility] , [address] [facility] Physician Associ D/B/A: [facility] [place] [address] PCP - General Internal Medicine 01/24/18
== END 2024-06-14 09:02 | disposition home or self-care (01) ==
LOC: HO.US 09:01
PROVIDERS: PCP Internal Medicine; Visit Provider Internal Medicine
DX: R10.11 Right upper quadrant pain (principal)
CPT/HCPCS: 76700

== ENCOUNTER → 2024-06-14 09:03 | Outpatient (BNV) | payer OTHER, SELFPAY | PROVIDERS: PCP Internal Medicine; Visit Provider Radiology Diagnostic Radiology | DX: K76.0 Fatty (change of) liver, not elsewhere classified (principal); R10.11 Right upper quadrant pain | CPT/HCPCS: 76700 ==

== ENCOUNTER 2025-03-10 08:01 | Outpatient (AMB) | payer OTHER, SELFPAY ==
--- NOTE | 2025-03-10 08:05 | MHC.PC.OV ---
Vital Signs 03/10/25 08:07 Height 5 ft 6 in Weight 211 lb 4 oz BMI 34.1 BP 140/88 H Pulse 64 Pulse Source Pulse Oximeter Temp 97.3 F Temp Source Temporal Artery Scan Pulse Oximetry (%) 97 Oxygen Delivery Method Room Air Intake Visit Reasons: bp,thyroid,insomnia- A1C needed RE Executive Personal Assistant Required: No Accompanied by: Self / Same As Patient Allergies mint (MINT) Allergy (Intermediate, Verified 03/10/25 08:30) BRUISING OF FEET Medication List - Last Reconciled 03/10/25 by Gem Linares MD apixaban (Eliquis) 5 mg PO BID 90 days atorvastatin 80 mg PO BEDTIME 90 days blood sugar diagnostic (FreeStyle Test strips) Use 1 test strip once a day blood-glucose meter (FreeStyle [place] Lite kit) As directed cholecalciferol (vitamin D3) 50 mcg PO DAILY 90 days diclofenac sodium 1% (Arthritis Pain (diclofenac)) 2 grams topical QID 30 days docusate sodium (Colace) 100 mg PO DAILY PRN 30 days fenofibrate 160 mg PO DAILY 90 days lancets (FreeStyle Lancets) Use 1 lancet daily to test blood glucose. levothyroxine 150 mcg PO DAILY 90 days lisinopril 10 mg PO DAILY 90 days loratadine 10 mg PO DAILY PRN 90 days magnesium oxide 400 mg PO DAILY 30 days meloxicam 15 mg PO DAILY 90 days metformin 500 mg PO BID 90 days omeprazole 20 mg PO DAILY 90 days semaglutide (Ozempic) 2 mg (0.75 mL) subcut QWEEK 4 weeks walker As directed zolpidem 5 mg PO BEDTIME PRN 30 days Tobacco use date assessed: 05/15/24 Dental Screening Dental Screen Date: 05/15/24 HPI HPI Comments History of Present Illness Details The patient is a 59 year old male presenting for medication management and follow-up on chronic conditions. The patient has a history of a blood clot in his leg, for which he takes Eliquis twice daily. He also takes atorvastatin 80 mg for cholesterol, vitamin D, docusate for constipation, levothyroxine 150 mcg, lisinopril 10 mg, loratadine for allergies, magnesium, meloxicam, metformin, and omeprazole for acid reflux. The patient was previously prescribed fenofibrate for triglycerides, but this will be discontinued as it is indicated for triglyceride levels of 500 or higher due to the risk of pancreatitis. He has a prescription for Ozempic 2 mg, but it was not approved by his insurance plan. He has not had zolpidem since November. He has diabetes mellitus type 2 on his A1c is 9.1% and I will restart him on Ozempic. Also has hypothyroidism and last TSH was normal. Insomnia well control with zolpidem. Blood pressure elevated today and he has not take his medications yet. The patient reports urinary dribbling at night. He reports his blood sugar levels at home are good. He declined the influenza vaccine this year. [facility] Medical History Numbness of right foot Right upper quadrant abdominal pain Dyslipidemia DM2 (diabetes mellitus, type 2) Obesity due to excess calories Mixed hyperlipidemia Diabetes mellitus Sciatica Lumbar stenosis Essential hypertension Hypothyroidism History of DVT (deep vein thrombosis) Lumbar degenerative disc disease GERD (gastroesophageal reflux disease) Surgical History Status post cervical spinal fusion History of lithotripsy History of adenoidectomy History of breast biopsy Family History Mother No problems noted. Father Diabetes Hypertension Stroke Brother No problems noted. Brother No problems noted. Sister No problems noted. Son In good health Son In good health Son In good health Son In good health Social History Household Members: Spouse Housing: Apartment Alcohol intake: former Patient Tobacco Use Status: Former Tobacco user Tobacco use type: Cigarette Years Smoked: quit 20 years ago e-Cigarette/Vaping Use: Never Used Second Hand Smoke Exposure: Yes Substance Use Type: Crack/Cocaine, Former Substance User and Marijuana service: No Current occupational status: disabled Cognitive needs: Yes Hearing needs: No Vision needs: Yes Questionnaire Thrive Questionnaire Date Thrive assessed: 05/15/24 I am a: Patient What is your living situation today?: I have a steady place to live Within the past 12 months, did the food you bought not last and you didn't have the money to get more?: Often true Within the past 12 months, did you worry whether your food would run out before you got money to buy more?: Never true Do you have trouble paying for medicines?: No Do you have trouble getting transportation to medical appointments?: No Do you have trouble paying your heating and electricity bill?: No Do you have trouble taking care of your child, family member or friend?: No Do you have trouble with day-to-day activities such as bathing, preparing meals, shopping, managing finances, etc.?: No Are you currently unemployed and looking for a job?: I choose not to answer this question Are you interested in more education?: No Please select the resources that you would like help with: None Currently or been in a relationship where the following occur: No concerns reported THRIVE Score: 1 JENARO-7 AMB Questionnaire JENARO-7 Date JENARO - 7 assessed: 05/15/24 Source: Developed by Drs. Robby Rodriguez, Daysi Gonzalez, Chu Casper and colleagues, with an educational christian from [employer]. Review of Systems Const All systems reviewed & are unremarkable except as noted in HPI and below Card Denies chest pain at rest, Denies chest pain with activity, Denies edema, Denies irregular heart rhythm, Denies claudication, Denies dyspnea, Denies dyspnea on exertion, Denies orthopnea, Denies paroxysmal nocturnal dyspnea and Denies slow heart rate Resp Denies cough, Denies dyspnea and Denies dyspnea on exertion GI Denies abdominal pain, Denies change in bowel habits, Denies excessive flatus, Denies nausea and Denies vomiting Denies urinary hesitancy, Denies urinary incontinence and Denies urinary urgency Physical exam (Primary Care) Vital Signs: Last Vital Signs Temp 97.3 F 03/10/25 08:07 Pulse 64 03/10/25 08:07 BP 140/88 H 03/10/25 08:07 Pulse Ox 97 03/10/25 08:07 Oxygen Delivery Method Room Air 03/10/25 08:07 BMI result Body Mass Index 34.1 BMI Assessment/Plan discussion: High BMI High, discussed plan: lifestyle, weight reduction, dietary and physical activity Tobacco/Smoking Status: Tobacco use Status Tobacco use date assessed 05/15/24 03/10/25 08:11 Patient Tobacco Use Status Former Tobacco user 03/10/25 08:11 Tobacco use type Cigarette 03/10/25 08:11 e-Cigarette/Vaping Use Never Used 03/10/25 08:11 Thrive Assessment: Date of Thrive Assessment Date Thrive assessed 05/15/24 03/10/25 08:11 Currently or been in a relationship where the following occur: No concerns reported Resp Effort & Inspection: normal respiratory effort Auscultation: clear to auscultation bilaterally Cardio Jugular venous distension: no JVD Rate: regular rate Rhythm: regular rhythm Heart sounds: S1 normal heart sound present and S2 normal heart sound present Extrem General: Yes full ROM Results AMB Hemoglobin A1c AMB Hemoglobin A1c 9.1 % Last Edit by HARRY Gaitan on 03/10/25 09:04 Coding Level of Care Code Add On Preventative Visit Only Diagnoses Type 2 diabetes mellitus without complication, without long-term current use of insulin E11.9 Diabetes mellitus penitentiary insulin use: without penitentiary use Diabetes mellitus complication status: without complication History of DVT (deep vein thrombosis) Z86.718 Essential hypertension I10 Mixed hyperlipidemia E78.2 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; E06.3 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 Time Spent (min) 21 Assessment & Plan Assessment & Plan (1) DM2 (diabetes mellitus, type 2): Code(s): E11.9 - Type 2 diabetes mellitus without complications Category: Medical Qualifiers: Diabetes mellitus intermediate school teacher insulin use: without penitentiary use Diabetes mellitus complication status: without complication Qualified Code(s): E11.9 - Type 2 diabetes mellitus without complications (2) History of DVT (deep vein thrombosis): Code(s): Z86.718 - Personal history of other venous thrombosis and embolism Category: Medical (3) Essential hypertension: Code(s): I10 - Essential (primary) hypertension Category: Medical (4) Mixed hyperlipidemia: Code(s): E78.2 - Mixed hyperlipidemia Category: Medical (5) Hypothyroidism: Code(s): E03.9 - Hypothyroidism, unspecified Category: Medical Qualifiers: 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 Qualified Code(s): E03.8 - Other specified hypothyroidism; E06.3 - Autoimmune thyroiditis Plan 1. Diabetes mellitus type 2 Restart Ozempic. A1c goal is equal or less than 7%. 2. Essential hypertension Continue antihypertensives. Blood pressure goal is equal or less than 130/80. 3. Hyperlipidemia Continue statins. LDL goal is less than 70. 4. Hypothyroidism Continue levothyroxine. Monitor TSH. 5. Insomnia Continue zolpidem. Orders: Orders Lipid Panel Today E78.5 - Hyperlipidemia, unspecified PSA,Total (Free>4and<10) Today R35.1 - Nocturia AMB Hemoglobin A1c Today E11.9 - Type 2 diabetes mellitus without complications Microalbumin, Random (w Creat) Today R80.9 - Proteinuria, unspecified Vitamin D 25-OH Total Today E55.9 - Vitamin D deficiency, unspecified Vitamin B12 and Folate Today E53.8 - Deficiency of other specified B group vitamins Comprehensive [place]. Panel Fast Today I10 - Essential (primary) hypertension Thyroid Stimulating Hormone Today E03.8 - Other specified hypothyroidism, E06.3 - Autoimmune thyroiditis Medications: New semaglutide (Ozempic) for 4 weeks 0.25 mg (0.368 mL) subcut QWEEK 1.472 mL 0RF 4 weeks Discontinued semaglutide (Ozempic) Discontinued Reason: Patient Completed Course 2 mg (0.75 mL) subcut QWEEK 4 weeks 3 mL 3RF E11.9 - Type 2 diabetes mellitus without complications
[2025-03-10 08:07] VITALS: BP 140/88; PULSE 64; TEMP 36.3; O2SAT 97; BMI 34.1
--- OUTSIDE RECORDS SUMMARY | 2025-03-10 08:15 | XMS_ITS | Clinical Summary ---
Author Organization [facility] ity Address [address] [place] [address] Care Team Providers Care Pack Master Name Role Phone Gem Linares MD Primary Care Provider [phone] Social History Tobacco Use Types Packs/Day Years [...] 2013 Zoster Vaccines (1 of 2) 2013 Depression Screening 03/27/2024 COVID-19 Vaccine (1 - 2024-2 6 season) 2024 Influenza Vaccine (#1) 2024 RSV Immunization Adult Patie nts (1 - 1-dose 75+ series) 2038 HIB [...] age to complete this topic Meningococcal B Vaccine Aged Out No l onger eligible based on patient's age to complete this topic RSV Immunization Patients Un peg 20 months Aged Out No longer eligible b ased on patient's age to complete this topic Varicella Vaccines Aged Out No longer eligible based on patient's age to complete this topic Care Teams Pack Master Relationship Specialty Start Date End Date Gem Linares MD [address] [place] [address] , [address] [facility] D/B/A: Nela Ramosatifrancois In Internal Medicine DMITRY Rondon PCP - General Internal Medicine 01/24/18
--- OUTSIDE RECORDS SUMMARY | 2025-03-10 08:15 | XMS_ITS | Clinical Summary ---
Author Organization [facility] Prior to 08/24/[address] [place] [id number] Care Team Providers Care [place] Guide Name Role Phone Gem Fields MD Primary [...] (1 of 2) 2013 Influenza Vaccine (#1) 2024 RSV Adult > 60+ Yrs or Pregn [...] age to complete this topic Care Teams [place] Guide Relationship Specialty Start Date End Date Gem Fields MD [address] [place] [address] , [address] [facility] D/B/A: Nela Cristina In Internal Medicine DMITRY Rondon [id number] PCP - General Internal Medicine 01/24/18
== END 2025-03-10 08:50 | disposition home or self-care (01) ==
LOC: HO.HMCH 08:02
PROVIDERS: PCP Internal Medicine; Visit Provider Internal Medicine
DX: E11.9 Type 2 diabetes mellitus without complications (principal); Z86.718 Personal history of other venous thrombosis and embolism; I10 Essential (primary) hypertension; E78.2 Mixed hyperlipidemia; E03.8 Other specified hypothyroidism; E06.3 Autoimmune thyroiditis

== ENCOUNTER → 2025-03-10 08:01 | Outpatient (BNVA) | payer OTHER, SELFPAY | PROVIDERS: PCP Internal Medicine; Visit Provider Internal Medicine | DX: E11.9 Type 2 diabetes mellitus without complications (principal); I10 Essential (primary) hypertension; E78.2 Mixed hyperlipidemia; E03.8 Other specified hypothyroidism; E06.3 Autoimmune thyroiditis; Z86.718 Personal history of other venous thrombosis and embolism | CPT/HCPCS: 83036; 99212 ==

== ENCOUNTER 2025-03-12 08:50 | Outpatient (REF) | payer OTHER, SELFPAY ==
--- OUTSIDE RECORDS SUMMARY | 2025-03-12 09:23 | XMS_ITS | Clinical Summary ---
Author Organization [facility] Prior to 08/24/[address] [place] [id number] Care Team Providers Care Optical Mechanic Apprentice Name Role Phone Gem Fields MD Primary [...] age to complete this topic Care Teams Optical Mechanic Apprentice Relationship Specialty Start Date End Date Gem Fields MD [address] [place] [address] , [address] [facility] D/B/A: Nela Cristina In Internal Medicine DMITRY Rondon [id number] PCP - General Internal Medicine 01/24/18
--- OUTSIDE RECORDS SUMMARY | 2025-03-12 09:23 | XMS_ITS | Clinical Summary ---
Author Organization [facility] ity Address [address] [place] [address] Care Team Providers Care Cardroom Drawing Runner Name Role Phone Gem Linares MD Primary Care Provider [phone] Social History Tobacco Use Types Packs/Day Years [...] age to complete this topic Care Teams Cardroom Drawing Runner Relationship Specialty Start Date End Date Gem Linares MD [address] [place] [address] , [address] [facility] D/B/A: Nela Ramosatifrancois In Internal Medicine DMITRY Rondon PCP - General Internal Medicine 01/24/18
[2025-03-12 10:35] LABS: Alanine Aminotransferase 58 U/L (0-40); Albumin Level 4.6 g/dL (3.5-5.0); Alkaline Phosphatase 69 U/L (39-117); Anion Gap 14 (12-20); Aspartate Amino Transferase 28 U/L (5-37); Blood Urea Nitrogen 16 mg/dL (9-16); Calcium 9.3 mg/dL (8.4-10.2); Carbon Dioxide 22 mmol/L (22-29); Chloride 102 mmol/L (96-108); Cholesterol 214 mg/dL (<200); Estimated Glomerular Filt Rate > 60; HDL Cholesterol 28 mg/dL (>40); Magnesium 2.0 mg/dL (1.6-2.6); Potassium 4.1 mmol/L (3.3-5.1); Sodium 134 mmol/L (135-145); Total Protein 7.3 g/dL (6.5-8.0); Triglycerides 796 mg/dL (<150)
[2025-03-12 10:51] LABS: PSA,Total (Free>4and<10) 1.27 ng/mL (0.00-4.00)
[2025-03-12 10:54] LABS: Thyroid Stimulating Hormone 0.07 uIU/mL (0.32-4.0)
[2025-03-12 11:07] LABS: Folate 12.7 ng/mL (> or = 4.0); Vitamin B12 471 pg/mL (200-900)
[2025-03-12 11:28] LABS: Microalbum/Creatinine Ratio Ur 29.1 ug/mg cr (<30)
== END 2025-03-12 08:51 | disposition home or self-care (01) ==
LOC: HO.LAB 08:50
PROVIDERS: PCP Internal Medicine; Visit Provider Internal Medicine
DX: R10.11 Right upper quadrant pain (principal); R35.1 Nocturia; E78.5 Hyperlipidemia, unspecified; E55.9 Vitamin D deficiency, unspecified; E03.8 Other specified hypothyroidism; E06.3 Autoimmune thyroiditis; R80.9 Proteinuria, unspecified; E83.42 Hypomagnesemia; E53.8 Deficiency of other specified B group vitamins
CPT/HCPCS: 36415; 80053; 80061; 82043; 82306; 82570; 82607; 82746; 83735; 84153; 84443